=== PATIENT | female | born 1970 | race Caucasian/White ===

== ENCOUNTER 2024-06-28 09:21 | Emergency (ER) | payer BC, SELFPAY ==
--- NOTE | 2024-06-28 09:24 | ED_ITS ---
HPI - Nausea/Vomiting/Diarrhea General Chief complaint: Nausea/Vomiting/Diarrhea Stated complaint: Diarrhea/Vomiting/Fever Source: patient and RN notes reviewed Mode of arrival: ambulatory Limitations: no limitations History of Present Illness HPI Narrative: Patient is a 53-year-old female who presents to the [facility] with complaints of abdominal pain, nausea, vomiting, and diarrhea. Patient states that she developed diarrhea on Friday. She reports multiple episodes of non- bloody loose stools. she states that she started having vomiting yesterday. She has had ongoing abdominal pain. She is complaining of right upper quadrant abdominal pain. She describes the pain as a sharp cramping. States that the pain is moderately severe. The pain has exacerbated over the last few days, and she states that the pain would ease at times over the weekend but is not easing today. Unsure of known fever, but reports sweats and chills. Patient states that she has developed dizziness upon standing and ambulation over the last day. Feels as if she may be dehydrated. Related Data Home Medications ?Medication ?Instructions ?Recorded ?Confirmed ?Last Taken ?Type melatonin 5 mg chewable tablet 5 mg PO DAILY 10/30/23 Unknown History drnlamwd-hjarrzo-saql-lutein tablet tablet PO 10/30/23 Unknown History Allergies Allergy/AdvReac Type Severity Reaction Status Date / Time meperidine (From Demerol) Allergy Fainting Verified 06/28/24 09:34 Review of Systems Review of Systems: CONSTITUTIONAL: Repots chills and sweats. EYES: Denies visual changes, redness, or discharge. ENT: Denies otalgia and sore throat CARDIOVASCULAR: Denies chest pain, palpitations, or edema. RESPIRATORY: Denies cough or dyspnea. GASTROINTESTINAL: Reports abdominal pain, nausea, vomiting, and diarrhea. GENITOURINARY: Denies dysuria or hematuria. SKIN: Denies rash or itching. MUSCULOSKELETAL: Denies back pain, joint pain, or myalgia. NEUROLOGIC: Denies headache, numbness, or weakness. Pertinent positives per HPI. [facility] Family History Family History Mother Cancer Father Hypertension Social History Social History Smoking status: Never smoker Alcohol intake: current Substance use: never Substance use type: does not use Comments At the time of my signature, I reviewed and agree with the nursing past medical, surgical, social, and family history. There is no relevant family history pertinent to the patient complaint. Exam Narrative: GENERAL: This is a well-nourished, well-developed patient, in no apparent distress. Ill-appearing. HEAD: normocephalic, atraumatic. EYES: Sclera clear/white. Vision is grossly intact. EARS: External ears normal. Hearing grossly intact. NOSE: External nose normal with no obvious nasal discharge, nares without redness, no rhinorrhea. THROAT: Mucous membranes moist, oropharyngeal erythema. NECK: Neck supple, non-tender without lymphadenopathy, masses or thyromegaly. CARDIOVASCULAR: Regular rate and rhythm without murmurs, gallops, or rubs. RESPIRATORY: Clear to auscultation. Breath sounds equal bilaterally. No wheezes, rales, or rhonchi. GASTROINTESTINAL: RUQ abdominal tenderness with guarding. SKIN: warm, intact with no suspicious lesions or rash, good texture and turgor. NEURO: awake, alert, and oriented to person, place and time. There were no obvious focal neurologic abnormalities. EXTREMITIES: No clubbing, cyanosis, or edema. No joint tenderness, effusion, or edema noted. BACK: Nontender without deformity or crepitance. No flank tenderness. Course Course Level of Care: Express Care Visit Vital Signs Vital signs: Vital Signs Temperature 97.9 F 06/28/24 09:32 Pulse Rate 73 06/28/24 09:32 Respiratory Rate 16 06/28/24 09:32 Blood Pressure 146/93 H 06/28/24 09:32 Pulse Oximetry 100 06/28/24 09:32 Temperature 97.9 F 06/28/24 09:32 Pulse Rate 73 06/28/24 09:32 Respiratory Rate 16 06/28/24 09:32 Blood Pressure 146/93 H 06/28/24 09:32 Pulse Oximetry 100 06/28/24 09:32 Reviewed Transfer Transfered to: [facility] Transportation: Other (private vehicle) Transfer rationale: Right upper quadrant abdominal pain, appropriate testing and treatment for accurate diagnosis Accepting physician: Dr. Rowley MDM - Nausea/Vomiting/Diarrhea MDM Narrative Medical decision making narrative: Patient presents with right upper quadrant abdominal pain, nausea, vomiting, diarrhea. She will be transferred to [facility] for appropriate testing and treatment. Patient accepted to [facility] ED by Dr. Rowley. Patient will be transferred via private vehicle. Differential Diagnosis Differential diagnosis: Likely food poisoning, gastroenteritis, dehydration and other ( cholecystitis, pancreatitis) Critical Care Time Critical Care Time Critical Care Time: No Discharge Plan Discharge Clinical Impression: Right upper quadrant abdominal pain Patient Disposition: Acute Care Hospital Condition: Stable Additional Instructions: Go directly to [facility] ED for further evaluation, testing, and treatment. Patient Language: German Prescriptions: No Action pxypbhlm-rzxspcb-htac-lutein Tablet PO melatonin 5 mg tablet,chewable 5 mg PO DAILY lisinopril 5 mg tablet 5 mg PO DAILY Qty: 90 1RF scopolamine base 1 mg over 3 days patch 3 day 1 patch transdermal Q72H PRN (Reason: seasickness) Qty: 4 0RF Rx Instructions: Apply 1 patch (1 mg/3 days) behind ear at least 4 hours prior to required antiemetic effect needed amlodipine 2.5 mg tablet 2.5 mg PO DAILY Qty: 90 0RF Follow-up/Referrals: PHYSICIAN,COVERING MACHINE TENDER [Primary Care Provider] - Time of Disposition: 09:49
[2024-06-28 09:32] VITALS: BP 146/93; PULSE 73; RESP 16; TEMP 36.6; O2SAT 100
[2024-06-28 09:44] LABS: EDCOVIDSCREEN Negative (Negative); EDINFLUASCREEN Negative (Negative); EDINFLUBSCREEN Negative (Negative); EDSTREPNEGPOS1 Negative (Negative)
== END 2024-06-28 09:47 | disposition short-term general hospital (02) ==
PROVIDERS: Emergency Provider Nurse Practitioner
DX: R10.11 Right upper quadrant pain (principal); Z20.822 Contact with and (suspected) exposure to COVID-19
CPT/HCPCS: 87426; 87804; 87880; 99212; G0463

== ENCOUNTER 2024-06-28 10:11 | Emergency (ER) | payer BC, SELFPAY ==
[2024-06-28 10:16] VITALS: BP 149/93; PULSE 70; RESP 16; TEMP 36.9; O2SAT 96
--- OUTSIDE RECORDS SUMMARY | 2024-06-28 11:22 | XMS_ITS | Clinical Summary ---
Author Organization [facility] Address [address] [place] [address] Care Team Providers Care Shipping Manager Name Role Phone Papa Manuel MD Unavailable [phone] Jaswinder Rodriguez MD Primary Care Provider [phone] Source Comments [facility],non-owned Affiliates and Associated Physician Practices is amultiple site organization consisting of ambulatory clinics and hospital sitesin [place], [place], [place] and [place]. This disclosure is being madepursuant to the Care Everywhere program and may not contain all information available regarding this patient. Last updated 17.[facility] Allergies Active Allergy Reactions Criticality Noted Date Comments Demerol 09/10/2010 Blood pressure drops and faints, Blood pressure drops and faints Meperidine Elevated Blood Pressure Medium 05/16/2017 Medications * Be aware that medications may not be up to date on this document. Alwaysverify current medications with the patient. Medication Sig Dispensed Refills Start Date End Date Status albuterol HFA (Proventil HFA) 108 (90 Base) MCG/ACT inhaler Inhale 2 (two) puffs by mouth every 4 hours as needed 8 g 1 11/07/2021 Active Estradiol-Progest erone (Bijuva) 1-100 MG CAPS Active Multiple Vitamins-Minerals (ONE-A-DAY WOMENS 50 PLUS PO) Active melatonin 1 MG tablet Take 6 (six) tablets by mouth at bedtime Active lisinopril (Prinivil; Zestril) 5 MG tablet Take 1 (one) tablet by mouth once daily Due for appt 90 Each 3 06/23/2023 Active benzonatate (Tessalon Perles) 100 MG capsule Take 1 (one) capsule by mouth 3 times daily as needed for Cough 30 capsule 3 06/23/2023 Active tirzepatide (Mounjaro) 10 MG/0.5ML injection Inject 10 (ten) mg subcutaneously every 7 days Active Active Problems Problem Noted Date Diagnosed Date Essential hypertension 06/07/2019 Obesity (BMI 30-39.9) 12/26/2017 Venous insufficiency (chronic) (peripheral) 09/29 Varicose veins of left lower extremity with other complications 10/21/2016 Localized, primary osteoarthritis of ankle or fo ot 01/01/2010 Resolved Problems Problem Noted Date Diagnosed Date Resolved Date Sprain of medial collateral ligament of right knee 05/16/2017 01/02/2018 Sprain of anterior talofibul ar ligament of right ankle 05/16/2017 01/02/2018 Immunizations Name Administration Dates Next Due INFLUENZA VACCINE, TRIV. (AF LURIA, FLUZONE TRIVALENT; 6MO+) (IIV3) 01/01/2010 INFLUENZA VACCINE 01/17/2014,02/01/2013 INFLUENZA VACCINE, QUADR. (F LUZONE; FLULAVAL; FLUARIX; AFLURIA QUADRIVALENT; 6MO+), 0.5 ML (IIV4) 02/06/2022,12/26/2017 Influenza Intradermal 01/17/2014,02/01/2013 TDAP (7yrs+) 06/23/2023,01/01/2010,02/28/2009 Zoster Hzv Vacc Recombinant Inj Im 06/23/2023 iNFLUENZA VACCINE, RECOM-MAI, QUADR. (FLUBLOCK QUADRIVALENT; 18Y+) (RIV4) 01/11/2021,02/08/2020,04/29/2019 Family History Medical History Relation Name Comments CAD (Coronary Artery Disease) Father from [place] age 44; Status: High Cholesterol Father Cancer Mother breast; Status: Alive Hypertension Mother Relation Name Status Comments Father Mother Social History Tobacco Use Types Packs/Day Years Used Date Smoking Tobacco: Former Cigarettes Q uit: 12/02/2004 Smokeless Tobacco: Former Tobacco Cessation:Counseling Given: Not Answered Alcohol Use Standard Drinks/Week Comments Yes 0.8 (1 standard drink = 0.6 oz p ure alcohol) PHQ-2 Answer Date Recorded PHQ2 TOTAL SCORE 0 08/17/2020 Sex and Gender Information Value Date Recorded Sex Assigned at Not on file Gender Identity Female 04/17/2023 8:14 PM DEEP TISSUE MASSAGE THERAPIST Sexual Orientation Not on file Last Filed Vital Signs Vital Sign Reading Time Taken Comments Blood Pressure 136/84 06/23/2023 8:56 AM CDT Pulse 76 06/23/2023 8:56 AM CDT Temperature 35.9 C (96.7 F) 04/26/2022 11:48 AM DEEP TISSUE MASSAGE THERAPIST Respiratory Rate 12 04/26/2022 12:15 PM DEEP TISSUE MASSAGE THERAPIST Oxygen Saturation 99% 04/26/2022 12:15 PM DEEP TISSUE MASSAGE THERAPIST Inhaled Oxygen Concentration - - Weight 86.2 kg (190 lb) 06/23/2023 8:56 AM CDT Height 162.6 cm (5' 4 ) 04/26/2022 9:13 AM DEEP TISSUE MASSAGE THERAPIST Body Mass Index 32.61 04/26/2022 9:13 AM DEEP TISSUE MASSAGE THERAPIST Plan of Treatment Health Maintenance Due Date Last Done Comments COLOGUARD (AGES 45-75) - COLON CA SCREENING 1970 CT COLONOGRAPHY - COLON CA SCREENING 1970 FIT - COLON CA SCREENING 1970 FLEX SIG - COLON CA SCREENING 1970 HIV SCREENING 1985 HEPATITIS C SCREENING 12/07/1988 HEPATITIS B VACCINE (1 of 3 - 19+ 3-dose series) 1989 PNEUMOCOCCAL VACCINE 50+ (1 of 1 - PCV) 2020 ZOSTER VACCINE (2 of 2) 08/18/2023 06/23/2023 COVID-19 VACCINE (3 - 2023- season) 2023 02/06/2022, 03/28/2021 INFLUENZA VACCINE (#1) 2023 , 01/11/2021, 02/08/2020, Additional history exists DEPRESSION SCREENING 03/31/2024 06/23/2023 MAMMOGRAM 04/11/2024 04/11/2022, 04/20/2019 PAP with HPV 04/16/2027 04/16/2022 (Done Outside Per Report) LIPID TESTING 05/28/2028 05/29/2023, 11/0 06/2021, 09/20/2016, Additional history exists COLON MONITORING 04/26/2032 04/26/2022, 04/26/2022 COLONOSCOPY - COLON CA SCREENING 04/26/2032 04/26/2022, 04/26/2022 Colorectal Cancer Screening 04/26/2032 DTAP/TDAP/TD VACCINES (4 - Td or Tdap) 06/22/2033 06/23/2023, 01/01/2010, 02/28/2009 HIB VACCINE Aged Out No longer eligi ble based on patient's age to complete this topic HPV VACCINE Aged Out No longer eligi ble based on patient's age to complete this topic MENINGOCOCCAL (Group B) VACCINE SHARED DECISION-MAKING Aged Out No longer eligible based on patient's age to complete this topic MENINGOCOCCAL GROUPS A/C/Y/W VACCINE Aged Out No longer eligible based on patient's age to complete this topic Procedures Procedure Name Priority Date/Time Associated Diagnosis Comments LIPID PROFILE Routine 05/29/2023 9:40 AM DEEP TISSUE MASSAGE THERAPIST Lipid screening ENDOSCOPY, COLON, SCREENING Routine 04/26/2022 11:11 AM DEEP TISSUE MASSAGE THERAPIST MAMMOGRAM Routine 04/20/2019 from Last 3 Months or Most Recently Relevant to Health Maintenance Results * (ABNORMAL) LIPID PROFILE (05/29/2023 9:40 AM DEEP TISSUE MASSAGE THERAPIST) Cholesterol 174 100 - 199 mg/dL [facility] INSURANCE BILL Triglycerides 72 0 - 149 mg/dL [facility] INSURANCE BILL HDL Cholesterol 57 >39 mg/dL [facility] INSURANCE BILL VLDL Calculated 14 5 - 40 mg/dL [facility] INSURANCE BILL LDL Calculated 103(H) 0 - 99 mg/dL [facility] INSURANCE BILL Comment NOT AVAILABLE [facility] INSURANCE BILL Comment: FASTING Result cannot be obtained for this observation. Blood BLOOD SPECIMEN / Unknown 05/29/2023 9:40 AM DEEP TISSUE MASSAGE THERAPIST 05/29/2023 Narrative [facility] INSURANCE BILL - 05/30/2023 10:36 AM DEEP TISSUE MASSAGE THERAPIST A courtesy copy of this report has been sent to [facility], Resulting Agency Comment Lab Testing performed at: [facility] [address] [id number] Jaswinder Rodriguez MD LAB - CHE[facility] D[facility] [address] [place] [address] * ENDOSCOPY, COLON, SCREENING (04/26/2022 11:11 AM DEEP TISSUE MASSAGE THERAPIST) Report Endoscopy POC Endoscopy Department Report _ Patient Name: Charisma Werner Procedure Date: 04/26/2022 11:11 AM Date of : 1970 Classification: Outpatient Gender: Female Ethnicity: Not or Race: White _ Providers: Darcy Ashton MD Referring MD: Jaswinder Rodriguez (Referring MD) Procedure: Colonoscopy Indications: Screening for colorectal malignant neoplasm Medications: Monitored Anesthesia Care Patient Profile: This is a 51 year old female. Description of Procedure: After I obtained informed consent, the scope was passed under direct vision. Throughout the procedure, the patient's blood pressure, pulse, and oxygen saturations were monitored continuously. The Colonoscope was introduced through the anus and advanced to the terminal ileum. The colonoscopy was performed without difficulty. The patient tolerated the procedure well. Scope insertion time was 4 minutes. Scope withdrawal time was 10 minutes. The quality of the bowel preparation was evaluated using the BBPS ([place] Bowel Preparation Scale) with scores of: Right Colon = 3 (entire mucosa seen well with no residual staining, small fragments of stool or opaque liquid), Transverse Colon = 3 (entire mucosa seen well with no residual staining, small fragments of stool or opaque liquid) and Left Colon = 3 (entire mucosa seen well with no residual staining, small fragments of stool or opaque liquid). The total BBPS score equals 9. Findings: The perianal and digital rectal examinations were normal. A hypertrophied papilla was seen (clinically insignificant) The colon (entire examined portion) appeared normal. Estimated Blood Loss: Estimated blood loss: none. Complications: No immediate complications. Impression: - The entire examined colon is normal. - No specimens collected. Recommendation: - Patient has a contact number available for emergencies. The signs and symptoms of potential delayed complications were discussed with the patient. Return to normal activities tomorrow. Written discharge instructions were provided to the patient. - High fiber diet. - Repeat colonoscopy in 10 years for screening purposes. Attending Participation: I personally performed the entire procedure. Procedure Code(s): --- Professional --- G0121, Colorectal cancer screening; colonoscopy on individual not meeting criteria for high risk Diagnosis Code(s): --- Professional --- Z12.11, Encounter for screening for malignant neoplasm of colon CPT copyright 2019 [employer]. All rights reserved. The codes documented in this report are preliminary and upon computer language coder review may be revised to meet current compliance requirements. Darcy Ashton MD, 04/26/2022 11:55:00 AM This report has been signed electronically. Note Initiated On: 04/26/2022 11:11 AM Number of Addenda: [address] [address] [facility] 04/26/2022 11:1 1 AM DEEP TISSUE MASSAGE THERAPIST Darcy Ashton MD GI PROCEDURE ORDERAB LES [facility] * MAMMOGRAM (04/20/2019) Anatomical Region Laterality Modality Other Historical Provider SCANNING ONLY from Last 3 Months or Most Recently Relevant to Health Maintenance Care Teams Shipping Manager Relationship Specialty Start [place] [address] [place] [address] PCP - General 04/16/19 [place] [address] [place] [address] Orthopedic Surgery 05/16/17
--- OUTSIDE RECORDS SUMMARY | 2024-06-28 11:22 | XMS_ITS | Encounter Summary ---
Author Organization [facility] Address [address] [place] [address] Care Team Providers Care Glass Bead Maker Name Role Phone Unavailable Primary Care Provider Unavailabl e Encounter Details Date Type Department Care Team (Late st Contact Info) Description 06/03/2002 Outpatient Historical [facility] Anatoly Jaeger MD NO ADDRESS ON FILE Social History Tobacco Use Types Packs/Day Years Used Date Smoking Tobacco: Never Assessed Comments Unknown Sex and Gender Information Value Date Recorded Sex Assigned at Not on file Legal Sex Female 4:22 AM LIME SLAKER Gender Identity Not on file Sexual Orientation Not on file documented as of this encounter Plan of Treatment Not on file documented as of this encounter Visit Diagnoses Not on filedocumented in this encounter
--- OUTSIDE RECORDS SUMMARY | 2024-06-28 11:22 | XMS_ITS | Clinical Summary ---
Author Organization [facility] Address [address] [place] [address] Phone Care Team Providers Care Agricultural Produce Sorter Name Role Phone Unavailable Primary Care Provider Unavailabl e Allergies Active Allergy Reactions Criticality Noted Date Comments Meperidine Hypertension Medium 09/10/2010 Blood pressure drops and faints, Blood pressure drops and faints Medications lisinopriL (PRINIVIL) 5 mg tablet Take 1 Tablet by mouth daily. 06/25/2021 Active Active Problems No known active problems Encounters Date Type Department Care Team Description 06/16/2024 External Device Data [facility] ABSTRACTION Provider, Abstract 06/09/2024 External Device Data [facility] ABSTRACTION Provider, Abstract 06/08/2024 External Device Data [facility] ABSTRACTION Provider, Abstract 06/05/2024 External Device Data [facility] ABSTRACTION Provider, Abstract 06/04/2024 External Device Data [facility] ABSTRACTION Provider, Abstract 06/02/2024 External Device Data [facility] ABSTRACTION Provider, Abstract 05/19/2024 External Device Data [facility] ABSTRACTION Provider, Abstract 05/11/2024 External Device Data [facility] ABSTRACTION Provider, Abstract 04/21/2024 External Device Data [facility] ABSTRACTION Provider, Abstract from Last 3 Months Social History Tobacco Use Types Packs/Day Years Used Date Smoking Tobacco: Never Smokeless Tobacco: Never Tobacco Cessation:Counseling Given: Not Answered Alcohol Use Standard Drinks/Week Comments Yes 0 (1 standard drink = 0.6 oz pur e alcohol) Socially Comments No Sex and Gender Information Value Date Recorded Sex Assigned at Not on file Legal Sex Female 4:22 AM VENUE COORDINATOR Gender Identity Not on file Sexual Orientation Not on file Last Filed Vital Signs Vital Sign Reading Time Taken Comments Blood Pressure 116/80 04/16/2022 11:01 AM VENUE COORDINATOR Pulse - - Temperature - - Respiratory Rate - - Oxygen Saturation - - Inhaled Oxygen Concentration - - Weight 89.8 kg (198 lb) 04/16/2022 11:01 AM VENUE COORDINATOR Height - - Body Mass Index - - Plan of Treatment Health Maintenance Due Date Last Done Comments Pre-Diabetes and Diabetes Screening 1970 HEPATITIS B VACCINES (1 of 3 - 19+ 3-dose series) 1989 HPV/Cotest (21-29) 12/13/1991 HPV/Cotest (30-65) 2000 COLORECTAL SCREENING 12/13/2015 Colorectal Cancer Screening 12/13/2015 FIT-DNA Q 3 years 12/13/2015 FIT/FOBT Q 1 year 12/13/2015 Flex Sig/CT Colonography Q 5 years 12/13/2015 ZOSTER VACCINE (2 of 2) 08/18/2023 06/23/2023 INFLUENZA VACCINE (#1) 2023 2, 01/11/2021, 02/08/2020, Additional history exists BREAST CANCER SCREENING 11/06/2024 11/07/19 24, 04/11/2022, 04/20/2019, Additional history exists CERVICAL CANCER SCREENING 04/16/2025 PAP SMEAR 04/16/2025 04/16/2022 PAP SMEAR 04/16/2025 04/16/2022 DTAP/TDAP/TD VACCINES (4 - Td or Tdap) 06/22/2033 06/23/2023, 01/01/2010, 02/28/2009 PNEUMOCOCCAL VACCINE 0-49 YEARS Aged Out No longer eligible based on patient's age to complete this topic Procedures Procedure Name Priority Date/Time Associated Diagnosis Comments MAMMO 3D PABLITO SCREEN BILAT W OR WO CAD Routine 11/07/2023 8:05 AM CDT Visit for screening mammogram CERV/VAG CYTO AGE BASED SCREEN PAP Routine 04/16/2022 11:13 AM VENUE COORDINATOR Encounter for gynecological examination without abnormal finding Screening for cervical cancer Special screening examination for human papillomavirus (HPV) from Last 3 Months or Most Recently Relevant to Health Maintenance Results * MAMMO 3D PABLITO SCREEN BILAT W OR WO CAD (11/07/2023 8:05 AM CDT) Anatomical Region Laterality Modality Breast Bilateral Mammography 11/07/2023 8:05 AM CDT Impressions 11/07/2023 8:37 AM CDT IMPRESSION: Small nodule left breast for which ultrasound exam will be scheduled for further assessment. BI-RADS CATEGORY 0-Needs additional imaging. Narrative 11/07/2023 8:37 AM CDT Computer Assisted Detection (CAD) used during interpretation. Standard views of both breasts are obtained. 3D tomosynthesis was also utilized. Compared to prior studies, most recent being 04/11/22. The right breast is unchanged. A new 5 mm nodule is noted near the 6:00 position of the left breast proximal depth. Breast Density: Scattered areas of fibroglandular density. Sameer Levin MD MAMMO ORDERABLES Final Result * CERV/VAG CYTO AGE BASED SCREEN PAP (04/16/2022 11:13 AM VENUE COORDINATOR) COMMENT (PAP): [facility] [place] Comment: This order for age-based cervical cancer and STI screening follows ACOG guidelines(PB 168, 140, ERW982). See individual assays for performing site location. CLINICAL INFORMATION [facility] [place] Comment:None given LAST MENSTRUAL PERIOD [facility] [place] Comment:NONE GIVEN PREV PAP: [facility] [place] Comment:NONE GIVEN PREV BX: [facility] [place] Comment:NONE GIVEN SOURCE [facility] [place] Comment:Endocervix ADEQUACY: [facility] [place] Comment: Satisfactory for evaluation. Endocervical/transformation zone component present. Age and/or menstrual status not provided PAP INTERP [facility] [place] Comment:Negative for intraep ithelial lesion or malignancy. COMMENT (PAP TEST) [facility] [place] Comment: This Pap test has been evaluated with computer assisted technology. STATION JAILER: [facility] [place] Comment: [place]TT, CT(ASCP) CT Screening location: [address] [place] [address] EXPLANATORY NOTE [facility] [place] Comment: EXPLANATORY NOTE: The Pap is a screening test for cervical cancer. It is not a diagnostic test and is subject to false negative and false positive results. It is most reliable when a satisfactory sample, regularly obtained, is submitted with relevant clinical findings and history, and when the Pap result is evaluated along with historic and current clinical information. HPV E6/E7 Not Detected Not Detected [facility] [place] Comment: Methodology: International Marketing Intern-Mediated Amplification This assay detects E6/E7 viral messenger RNA (mRNA) from 14 high-risk HPV types (16,18,31,33,35,39,45,51,52,56,58,59,66,68). Cervical sources are required for HPV testing. If a vaginal source from a patient who has had a total hysterectomy with removal of cervix was submitted, please contact the testing laboratory for alternative testing options. For additional information, please refer to http://education.Thinkr/faq/CUK598z6 (This link if provided for information/ educational purposes only.) Test Performed at: [facility] [address] [phone] Bautista Ivory D.O., MPH SL Genital SWAB OF ENDOCERVIX / Unknown 04/16/2022 11:13 AM VENUE COORDINATOR 04/16/2022 10:11 PM VENUE COORDINATOR Sameer Levin MD PATHOLOGY/CYTOLOGY ORD ERABLES Final Result [facility] [phone] [facility] [address] [phone] from Last 3 Months or Most Recently Relevant to Health Maintenance Insurance [facility] OPEN ACCESS HMO [facility] BLUE ACCESS CHOICE [facility]
--- OUTSIDE RECORDS SUMMARY | 2024-06-28 11:22 | XMS_ITS | Encounter Summary ---
Author Organization [email or web address] [facility] Address [address] [place] [address] Care Team Providers Care Hospital Product Specialist Name Role Phone Unavailable Primary Care Provider Unavailabl e Encounter Details Date Type Department Care Team (Late st Contact Info) Description 05/03/2002 Outpatient Historical [facility] Anatoly Jaeger MD NO ADDRESS ON FILE Social History Tobacco Use Types Packs/Day Years Used Date Smoking Tobacco: Never Assessed Comments Unknown Sex and Gender Information Value Date Recorded Sex Assigned at Not on file Legal Sex Female 4:22 AM WELT TREATER Gender Identity Not on file Sexual Orientation Not on file documented as of this encounter Plan of Treatment Not on file documented as of this encounter Visit Diagnoses Not on filedocumented in this encounter
--- OUTSIDE RECORDS SUMMARY | 2024-06-28 11:22 | XMS_ITS ---
Author Organization [facility] Address [address] [place] [address] Care Team Providers Care Crabber Name Role Phone Kwaku Corrigan [phone] REASON FOR VISIT [facility] Weight Loss, on tirzepatide, doing well, no side effects, appetite suppression great on current dose, Desired weight loss: 70 lbs, +0.6 lbs since last visit, -18.6 lbs total, No history MTC or MEN2 or pancreatitis, Concerned about future DM and OA Vital Signs Height 64 in 09/24/2023 Weight 200.6 lbs 09/24/2023 BMI 34.43 kg/m2 09/24/2023 Encounters Encounter Location Date Provider Diagnosis [facility] ([address]) [address] [address] 09/24/2023 Kwaku Corrigan Morbid (severe) obesity due to excess calories E66.01 ; Chronic fatigue, unspecified R53.82 ; Other fatigue R53.83 and Other malaise R53.81 Assessments Encounter Date Diagnosis (ICD Code) Assessment Notes Treatment Notes Treatment Clinical Notes Section Notes 09/24/2023 Morbid (severe) obesity due to excess calories (ICD-10 - E66.01) 09/24/2023 Chronic fatigue, unspecified (ICD-10 - R53.82) 09/24/2023 Other fatigue (ICD-10 - R53.83) 09/24/2023 Other malaise (ICD-10 - R53.81) Plan Of Treatment Next Appt Details Follow Up: 1 Week, Reason: G LP-1 Agonist Administration Procedure Notes * Category Sub-Category Detail Notes [facility]: Weight Management tirzepatide Indication: weig ht loss Concentration: 10 mg/mL Volume Administered: 0.3 mL Dose Administered: 3 mg Route: SQ Location: Right abdomen Frequency: weekly Lot Number/Expiration: Medication Source: DoseMe Adverse Reaction: None Progress Notes * Neida ZARAGOZAOB:[birth year] (53 yo F)Acc No.[id number]:09/24/2023 Weight Loss Patient: Charisma CASTRO Provider: Kajal Corrigan MD :1970 A ge:52 Y S ex:Female Date:09/24/2023 [id number] Subjective: * Chief Complaints: * 1 . [facility] Weight Loss, on tirzepatide, doing well, no side effects, appetite suppression great on current dose. 2. Desired weight loss: 70 lbs, +0.6 lbs since last visit, -18.6 lbs total. 3. No history MTC or MEN2 or pancreatitis. 4. Concerned about future DM and OA. * Medical History: Objective: * Vitals: H t: 64 in, Wt: 200.6 lbs, BMI:34.43Index. Assessment: * Assessment: 1. M orbid (severe) obesity due to excess calories - E66.01 (Primary) 2 . C hronic fatigue, unspecified - R53.82 3 . O ther fatigue - R53.83 ?4. O ther malaise - R53.81 Plan: * Treatment: * Procedures: Q [facility]ell: Weight Management: tirzepatide I ndication w eight loss C oncentration 1 0 mg/mL V olume Administered 0 .3 mL D ose Administered 3 mg R oute S Q L ocation R ight abdomen F requency w eekly L ot Number/Expiration 0 M edication Source [facility] A dverse Reaction N one * Follow Up: 1 Week (Reason: GLP-1 Agonist Administration) * Billing Information: * Visit Code: * Procedure Codes: * Electronic signature of Daniel Corrigan MD, FAAAAI on 06/28/2024 at 11:22 AM CDT Sign off status: Pending * Provider: Kajal Corrigan MD Date: 0 09/24/2023 Generated for Camilo garsia/Keisha/Abimael on: 0 06/28/2024 11:22 AM CDT
--- OUTSIDE RECORDS SUMMARY | 2024-06-28 11:22 | XMS_ITS | Encounter Summary ---
Author Organization [facility] Address [address] [place] [address] Care Team Providers Care Infantry Indirect Fire Crewmember Name Role Phone Unavailable Primary Care Provider Unavailabl e Encounter Details Date Type Department Care Team (Latest Contact Info) Description 01/27/2002 Outpatient Historical [facility] [place] PAIN IN LIMB (Primary Dx) Social History Tobacco Use Types Packs/Day Years Used Date Smoking Tobacco: Never Assessed Comments Unknown Sex and Gender Information Value Date Recorded Sex Assigned at Not on file Legal Sex Female 4:22 [address] STREETS AND BUILDINGS DECORATOR Gender Identity Not on file Sexual Orientation Not on file documented as of this encounter Plan of Treatment Not on file documented as of this encounter Visit Diagnoses Diagnosis Pain in limb- Primary documented in this encounter
--- OUTSIDE RECORDS SUMMARY | 2024-06-28 11:22 | XMS_ITS | Encounter Summary ---
Author Organization [facility] Address [address] [place] [address] Care Team Providers Care Pickle Cutter Name Role Phone Unavailable Primary Care Provider Unavailabl e Encounter Details Date Type Department Care Team (Latest Contact Info) Description 08/07/1998 Outpatient Historical [facility] [place] (Primary Dx) Social History Tobacco Use Types Packs/Day Years Used Date Smoking Tobacco: Never Assessed Comments Unknown Sex and Gender Information Value Date Recorded Sex Assigned at Not on file Legal Sex Female 4:22 AM SIZING SPONGER Gender Identity Not on file Sexual Orientation Not on file documented as of this encounter Plan of Treatment Not on file documented as of this encounter Visit Diagnoses Diagnosis Fl[place]- Primary documented in this encounter
--- OUTSIDE RECORDS SUMMARY | 2024-06-28 11:22 | XMS_ITS | Encounter Summary ---
Author Organization [facility] Address [address] [place] [address] Care Team Providers Care Kier Drier Name Role Phone Unavailable Primary Care Provider Unavailabl e Encounter Details Date Type Department Care Team (Late st Contact Info) Description 02/22/2002 Outpatient Historical [facility] [place] [address] [place] [address] [place] [address] [place] [address] Social History Tobacco Use Types Packs/Day Years Used Date Smoking Tobacco: Never Assessed Comments Unknown Sex and Gender Information Value Date Recorded Sex Assigned at Not on file Legal Sex Female 4:22 AM INSURANCE AGENTS SUPERVISOR Gender Identity Not on file Sexual Orientation Not on file documented as of this encounter Plan of Treatment Not on file documented as of this encounter Visit Diagnoses Not on filedocumented in this encounter
--- OUTSIDE RECORDS SUMMARY | 2024-06-28 11:22 | XMS_ITS | Encounter Summary ---
Author Organization [facility] Address [address] [place] [address] Care Team Providers Care Recycler Forklift Driver Truck Driver Name Role Phone Unavailable Primary Care Provider Unavailabl e Encounter Details Date Type Department Care Team (Late st Contact Info) Description 02/02/2002 Outpatient Historical [facility] [address] [facility] [address] [place] [address] Corey Mendoza MD [address] [place] [address] [address] [place] [address] Social History Tobacco Use Types Packs/Day Years Used Date Smoking Tobacco: Never Assessed Comments Unknown Sex and Gender Information Value Date Recorded Sex Assigned at Not on file Legal Sex Female 4:22 AM ARTIST SCIENTIFIC Gender Identity Not on file Sexual Orientation Not on file documented as of this encounter Plan of Treatment Not on file documented as of this encounter Visit Diagnoses Not on filedocumented in this encounter
--- OUTSIDE RECORDS SUMMARY | 2024-06-28 11:22 | XMS_ITS | Encounter Summary ---
Author Organization [facility] Address [address] [place] [address] Care Team Providers Care Glued Wood Tester Name Role Phone Unavailable Primary Care Provider Unavailabl e Encounter Details Date Type Department Care Team (Late st Contact Info) Description 01/27/2002 Outpatient Historical [facility] - [place] [address] [facility] [address] [place] [address] [place] [address] [place] [address] Social History Tobacco Use Types Packs/Day Years Used Date Smoking Tobacco: Never Assessed Comments Unknown Sex and Gender Information Value Date Recorded Sex Assigned at Not on file Legal Sex Female 4:22 AM STEEL CHECKER Gender Identity Not on file Sexual Orientation Not on file documented as of this encounter Plan of Treatment Not on file documented as of this encounter Visit Diagnoses Not on filedocumented in this encounter
--- OUTSIDE RECORDS SUMMARY | 2024-06-28 11:22 | XMS_ITS | Patient Health Record ---
Author Organization [facility] Address [address] [facility] [address] [place] [address] Support Name Relationship Address Phone Charisma Werner Guarantor Unknown [phone] Reason For Referral No Information Plan Of Treatment No Information
--- OUTSIDE RECORDS SUMMARY | 2024-06-28 11:22 | XMS_ITS | Encounter Summary ---
Author Organization [facility] Address [address] [place] [address] Care Team Providers Care Director Of Accounting Name Role Phone Unavailable Primary Care Provider Unavailabl e Encounter Details Date Type Department Care Team (Late st Contact Info) Description 08/21/1998 Outpatient Historical [facility] Anatoly Jeager MD NO ADDRESS ON FILE Social History Tobacco Use Types Packs/Day Years Used Date Smoking Tobacco: Never Assessed Comments Unknown Sex and Gender Information Value Date Recorded Sex Assigned at Not on file Legal Sex Female 4:22 AM DISHWASHER Gender Identity Not on file Sexual Orientation Not on file documented as of this encounter Plan of Treatment Not on file documented as of this encounter Visit Diagnoses Not on filedocumented in this encounter
--- OUTSIDE RECORDS SUMMARY | 2024-06-28 11:23 | XMS_ITS ---
Author Organization [facility] Address [address] [place] [address] Care Team Providers Care President Trust Company Name Role Phone Kwaku Corrigan [phone] REASON FOR VISIT [facility] Weight Loss, on tirzepatide, doing well, no side effects, appetite suppression great on current dose, Desired weight loss: 70 lbs, -2 lbs since last visit, -19.2 lbs total, No historyMTC or MEN2 or pancreatitis, Concerned about future DM and OA Vital Signs Height 64 in 09/17/2023 Weight 199.2 lbs 09/17/2023 BMI 34.19 kg/m2 09/17/2023 Encounters Encounter Location Date Provider Diagnosis [facility] [place] ([address]) [address] [address] 09/17/2023 Kwaku Corrigan Morbid (severe) obesity due to excess calories E66.01 ; Chronic fatigue, unspecified R53.82 ; Other fatigue R53.83 and Other malaise R53.81 Assessments Encounter Date Diagnosis (ICD Code) Assessment Notes Treatment Notes Treatment Clinical Notes Section Notes 09/17/2023 Morbid (severe) obesity due to excess calories (ICD-10 - E66.01) 09/17/2023 Chronic fatigue, unspecified (ICD-10 - R53.82) 09/17/2023 Other fatigue (ICD-10 - R53.83) 09/17/2023 Other malaise (ICD-10 - R53.81) Plan Of Treatment Next Appt Details Follow Up: 1 Week, Reason: G LP-1 Agonist Administration Procedure Notes * Category Sub-Category Detail Notes [facility]: Weight Management tirzepatide Indication: weig ht loss Concentration: 10 mg/mL Volume Administered: 0.3 mL Dose Administered: 3 mg Route: SQ Location: Right abdomen Frequency: weekly Lot Number/Expiration: Medication Source: [place] Adverse Reaction: None Progress Notes * Neida ZARAGOZAOB:[birth year] (53 yo F)Acc No.[id number]:09/17/2023 Weight Loss Patient: Charisma CASTRO Provider: Kajal Corrigan MD :1970 A ge:52 Y S ex:Female Date:09/17/2023 [id number] Subjective: * Chief Complaints: * 1 . [facility] Weight Loss, on tirzepatide, doing well, no side effects, appetite suppression great on current dose. 2. Desired weight loss: 70 lbs, -2 lbs since last visit, -19.2 lbs total. 3. No history MTC or MEN2 or pancreatitis. 4. Concerned about future DM and OA. * Medical History: Objective: * Vitals: H t: 64 in, Wt: 199.2 lbs, BMI:34.19Index. Assessment: * Assessment: 1. M orbid (severe) [...] ot Number/Expiration 0 M [facility]ication [facility] A dverse Reaction N one * Follow Up: 1 Week (Reason: GLP-1 Agonist Administration) * Billing Information: * Visit Code: * Procedure Codes: * Electronic signature of Daniel Corrigan MD, FAAAAI on 06/28/2024 at 11:23 AM CDT Sign off status: Pending * Provider: Kajal Corrigan MD Date: 0 09/17/2023 Generated for Camilo garsia/Keisha/Abimael on: 0 06/28/2024 11:23 AM CDT
--- OUTSIDE RECORDS SUMMARY | 2024-06-28 11:23 | XMS_ITS | Encounter Summary ---
Author Organization [employer] [facility] Address [address] [place] [address] Care Team Providers Care Mica Paster Name Role Phone Unavailable Primary Care Provider Unavailabl e Encounter Details Date Type Department Care Team (Late st Contact Info) Description 07/31/1998 Outpatient Historical [facility] Anatoly Jaeger MD NO ADDRESS ON FILE Social History Tobacco Use Types Packs/Day Years Used Date Smoking Tobacco: Never Assessed Comments Unknown Sex and Gender Information Value Date Recorded Sex Assigned at Not on file Legal Sex Female 4:22 AM ASSISTANT PARALEGAL Gender Identity Not on file Sexual Orientation Not on file documented as of this encounter Plan of Treatment Not on file documented as of this encounter Visit Diagnoses Not on filedocumented in this encounter
--- OUTSIDE RECORDS SUMMARY | 2024-06-28 11:23 | XMS_ITS | Encounter Summary ---
Author Organization [employer] [facility] Address [address] [place] [address] Care Team Providers Care Mining Analyst Name Role Phone Unavailable Primary Care Provider Unavailabl e Encounter Details Date Type Department Care Team (Late st Contact Info) Description 01/24/2003 Outpatient Historical [facility] Anatoly Jaeger MD NO ADDRESS ON FILE Social History Tobacco Use Types Packs/Day Years Used Date Smoking Tobacco: Never Assessed Comments Unknown Sex and Gender Information Value Date Recorded Sex Assigned at Not on file Legal Sex Female 4:22 AM SURVEILLANCE SENSOR OFFICER Gender Identity Not on file Sexual Orientation Not on file documented as of this encounter Plan of Treatment Not on file documented as of this encounter Visit Diagnoses Not on filedocumented in this encounter
--- OUTSIDE RECORDS SUMMARY | 2024-06-28 11:23 | XMS_ITS | Encounter Summary ---
Author Organization [employer] [facility] Address [address] [place] [address] Care Team Providers Care Journeyman Meat Cutter Name Role Phone Unavailable Primary Care Provider Unavailabl e Encounter Details Date Type Department Care Team (Late st Contact Info) Description 08/03/1998 Outpatient Historical [facility] Anatoly Jaeger MD NO ADDRESS ON FILE Social History Tobacco Use Types Packs/Day Years Used Date Smoking Tobacco: Never Assessed Comments Unknown Sex and Gender Information Value Date Recorded Sex Assigned at Not on file Legal Sex Female 4:22 AM GEOTHERMAL HEAT PUMP MACHINIST Gender Identity Not on file Sexual Orientation Not on file documented as of this encounter Plan of Treatment Not on file documented as of this encounter Visit Diagnoses Not on filedocumented in this encounter
--- OUTSIDE RECORDS SUMMARY | 2024-06-28 11:23 | XMS_ITS | Encounter Summary ---
Author Organization [facility] Address [address] [place] [address] Care Team Providers Care Merchandiser Seasonal Name Role Phone Unavailable Primary Care Provider Unavailabl e Encounter Details Date Type Department Care Team (Late st Contact Info) Description 04/27/1998 Outpatient Historical [facility] Anatoly Jaeger MD NO ADDRESS ON FILE Social History Tobacco Use Types Packs/Day Years Used Date Smoking Tobacco: Never Assessed Comments Unknown Sex and Gender Information Value Date Recorded Sex Assigned at Not on file Legal Sex Female 4:22 AM SHOW HOST/HOSTESS Gender Identity Not on file Sexual Orientation Not on file documented as of this encounter Plan of Treatment Not on file documented as of this encounter Visit Diagnoses Not on filedocumented in this encounter
--- OUTSIDE RECORDS SUMMARY | 2024-06-28 11:23 | XMS_ITS | Encounter Summary ---
Author Organization [facility] Address [address] [place] [address] Care Team Providers Care Protective Signal Repairer Name Role Phone Unavailable Primary Care Provider Unavailabl e Encounter Details Date Type Department Care Team (Late st Contact Info) Description 12/04/2006 Outpatient Historical [facility] Medicine - [place] [address] [place] [phone] Bautista Brown MD [address] [place], [place] [phone] Social History Tobacco Use Types Packs/Day Years Used Date Smoking Tobacco: Never Assessed Comments Unknown Sex and Gender Information Value Date Recorded Sex Assigned at Not on file Legal Sex Female 4:22 AM KNURLING MACHINE OPERATOR Gender Identity Not on file Sexual Orientation Not on file documented as of this encounter Plan of Treatment Not on file documented as of this encounter Visit Diagnoses Not on filedocumented in this encounter
--- OUTSIDE RECORDS SUMMARY | 2024-06-28 11:23 | XMS_ITS | Encounter Summary ---
Author Organization [facility] Address [address] Brown: Epic Prelude ADT KIM POZO [address] Care Team Providers Care Gas Tester Name Role Phone Unavailable Primary Care Provider Unavailabl e Encounter Details Date Type Department Care Team (Late st Contact Info) Description 11/22/1991 Outpatient Historical Social History Tobacco Use Types Packs/Day Years Used Date Smoking Tobacco: Never Assessed Comments Unknown Sex and Gender Information Value Date Recorded Sex Assigned at Not on file Legal Sex Female 4:22 AM LEASE ADMINISTRATION SUPERVISOR Gender Identity Not on file Sexual Orientation Not on file documented as of this encounter Plan of Treatment Not on file documented as of this encounter Visit Diagnoses Not on filedocumented in this encounter
--- OUTSIDE RECORDS SUMMARY | 2024-06-28 11:23 | XMS_ITS | Encounter Summary ---
Author Organization [facility] Address [address] [place] [address] Care Team Providers Care Scientific Aide Name Role Phone Unavailable Primary Care Provider Unavailabl e Encounter Details Date Type Department Care Team (Late st Contact Info) Description 05/10/2005 Outpatient Historical [facility] Medicine - [place] [address] [facility] [address] [place] [address] [place] [address] [place] [address] Social History Tobacco Use Types Packs/Day Years Used Date Smoking Tobacco: Never Assessed Comments Unknown Sex and Gender Information Value Date Recorded Sex Assigned at Not on file Legal Sex Female 4:22 AM SENIOR INTERNAL AUDITOR Gender Identity Not on file Sexual Orientation Not on file documented as of this encounter Plan of Treatment Not on file documented as of this encounter Visit Diagnoses Not on filedocumented in this encounter
--- OUTSIDE RECORDS SUMMARY | 2024-06-28 11:23 | XMS_ITS ---
Author Organization [facility] Address [address] [place] [address] Care Team Providers Care Buckle Frame Shaper Name Role Phone zzzzMigration, zzzzProvider Unavailable Unav ailable REASON FOR VISIT EMR-Arsenio Encounters Encounter Location Date Provider Diagnosis [facility] [address] [place] [address] 01/19/2023 zzzzProvider zzzzMigration Plan Of Treatment No Information Progress Notes * Neida ARMASOB: 1 (53 yo F)Acc No.[id number]:01/19/2023 Patient: Charisma PENNY :1970 A ge:52 Y S ex:Female Address:[place], [address] Subjective: * Chief Complaints: * E MR-Arsenio * Medical History: * Surgical History: * Hospitalization/Major Diagno stic Procedure: * Medications: Objective: * Vitals: * Physical Examination: Assessment: Plan: * Treatment: * Procedure Codes: * true * Date: Generated for Printi ng/Faxing/eTransmitting on: 0 06/28/2024 11:22 AM CDT
--- OUTSIDE RECORDS SUMMARY | 2024-06-28 11:23 | XMS_ITS | Encounter Summary ---
Author Organization [facility] Address [address] [place] [address] Care Team Providers Care Senior Technologist Name Role Phone Unavailable Primary Care Provider Unavailabl e Encounter Details Date Type Department Care Team (Late st Contact Info) Description 06/22/1998 Outpatient Historical [facility] Anatoly Jaeger MD NO ADDRESS ON FILE Social History Tobacco Use Types Packs/Day Years Used Date Smoking Tobacco: Never Assessed Comments Unknown Sex and Gender Information Value Date Recorded Sex Assigned at Not on file Legal Sex Female 4:22 AM BOILER CONTROL ROOM OPERATOR Gender Identity Not on file Sexual Orientation Not on file documented as of this encounter Plan of Treatment Not on file documented as of this encounter Visit Diagnoses Not on filedocumented in this encounter
--- OUTSIDE RECORDS SUMMARY | 2024-06-28 11:23 | XMS_ITS | Encounter Summary ---
Author Organization [facility] Address [address] [place] [address] Care Team Providers Care Mechanical Technician Name Role Phone Unavailable Primary Care Provider Unavailabl e Encounter Details Date Type Department Care Team (Late st Contact Info) Description 12/31/2006 Outpatient Historical [facility] Medicine - [place] [address] [place] [phone] Bautista Brown MD [address] [place], [place] [phone] Social History Tobacco Use Types Packs/Day Years Used Date Smoking Tobacco: Never Assessed Comments Unknown Sex and Gender Information Value Date Recorded Sex Assigned at Not on file Legal Sex Female 4:22 AM ELECTRON MICROPROBE OPERATOR Gender Identity Not on file Sexual Orientation Not on file documented as of this encounter Plan of Treatment Not on file documented as of this encounter Visit Diagnoses Not on filedocumented in this encounter
--- OUTSIDE RECORDS SUMMARY | 2024-06-28 11:23 | XMS_ITS | Encounter Summary ---
Author Organization [facility] Address [address] [place] [address] Care Team Providers Care Administrative Office Clerk Name Role Phone Unavailable Primary Care Provider Unavailabl e Encounter Details Date Type Department Care Team (Latest Contact Info) Description 01/06/2006 Outpatient Historical [facility] Screening Mammogram for High-Risk Patient (Primary Dx) Social History Tobacco Use Types Packs/Day Years Used Date Smoking Tobacco: Never Assessed Comments Unknown Sex and Gender Information Value Date Recorded Sex Assigned at Not on file Legal Sex Female 4:22 AM BUNDLE TIER Gender Identity Not on file Sexual Orientation Not on file documented as of this encounter Plan of Treatment Not on file documented as of this encounter Visit Diagnoses Diagnosis Screening mammogram for high-risk patient- Primary documented in this encounter
--- OUTSIDE RECORDS SUMMARY | 2024-06-28 11:23 | XMS_ITS | Encounter Summary ---
Author Organization [facility] Address [address] [place] [address] Care Team Providers Care Power Electronics Research Engineer Name Role Phone Unavailable Primary Care Provider Unavailabl e Encounter Details Date Type Department Care Team (Late st Contact Info) Description 09/10/2006 Outpatient Historical [facility] Medicine - [place] [address] [facility] [address] [place] [phone] Bautista Brown MD [address] [facility] [place], [place] [phone] Social History Tobacco Use Types Packs/Day Years Used Date Smoking Tobacco: Never Assessed Comments Unknown Sex and Gender Information Value Date Recorded Sex Assigned at Not on file Legal Sex Female 4:22 AM ELECTRICAL HARDWARE ENGINEER Gender Identity Not on file Sexual Orientation Not on file documented as of this encounter Plan of Treatment Not on file documented as of this encounter Visit Diagnoses Not on filedocumented in this encounter
--- OUTSIDE RECORDS SUMMARY | 2024-06-28 11:23 | XMS_ITS | Encounter Summary ---
Author Organization [facility] Address [address] [place] [address] Care Team Providers Care Diaper Folder Name Role Phone Unavailable Primary Care Provider Unavailabl e Encounter Details Date Type Department Care Team (Latest Contact Info) Description 11/17/2003 Outpatient Historical [facility] [place] PAIN IN LIMB (Primary Dx) Social History Tobacco Use Types Packs/Day Years Used Date Smoking Tobacco: Never Assessed Comments Unknown Sex and Gender Information Value Date Recorded Sex Assigned at Not on file Legal Sex Female 4:22 AM EMERY WHEEL WORKER Gender Identity Not on file Sexual Orientation Not on file documented as of this encounter Plan of Treatment Not on file documented as of this encounter Visit Diagnoses Diagnosis Pain in limb- Primary documented in this encounter
--- OUTSIDE RECORDS SUMMARY | 2024-06-28 11:23 | XMS_ITS | Encounter Summary ---
Author Organization [facility] Address [address] [place] [address] Care Team Providers Care Podiatric Assistant Name Role Phone Unavailable Primary Care Provider Unavailabl e Encounter Details Date Type Department Care Team (Late st Contact Info) Description 05/28/2002 Outpatient Historical [facility] Medicine - [place] [address] [facility] [address] [place] [address] [place] [address] [place] [address] Social History Tobacco Use Types Packs/Day Years Used Date Smoking Tobacco: Never Assessed Comments Unknown Sex and Gender Information Value Date Recorded Sex Assigned at Not on file Legal Sex Female 4:[address] MAN Gender Identity Not on file Sexual Orientation Not on file documented as of this encounter Plan of Treatment Not on file documented as of this encounter Visit Diagnoses Not on filedocumented in this encounter
--- OUTSIDE RECORDS SUMMARY | 2024-06-28 11:23 | XMS_ITS | Encounter Summary ---
Author Organization [facility] Address [address] [place] [address] Care Team Providers Care Office Lead Name Role Phone Unavailable Primary Care Provider Unavailabl e Encounter Details Date Type Department Care Team (Late st Contact Info) Description 05/26/2002 Outpatient Historical [facility] Medicine - [place] [address] [facility] [address] [place] [address] [place] [address] [place] [address] Social History Tobacco Use Types Packs/Day Years Used Date Smoking Tobacco: Never Assessed Comments Unknown Sex and Gender Information Value Date Recorded Sex Assigned at Not on file Legal Sex Female 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
--- OUTSIDE RECORDS SUMMARY | 2024-06-28 11:23 | XMS_ITS ---
Author Organization [facility] Address [address] [place] [address] Care Team Providers Care Ob Scrub Tech Name Role Phone Shekhar Kwaku Unavailable [phone] REASON FOR VISIT [facility], on tirzepatide, doing well, no side effects, appetite suppression great on current dose, Desired weight loss: 70 lbs, +0.6 lbs since last visit, -18.6 lbs total, No history MTC or MEN2 or pancreatitis, Concerned about future DM and OA Encounters Encounter Location Date Provider Diagnosis [facility] [place] ([address]) [address] [address] 10/01/2023 Kwaku Corrigan Morbid (severe) obesity due to excess calories E66.01 ; Chronic fatigue, unspecified R53.82 ; Other fatigue R53.83 and Other malaise R53.81 Assessments Encounter Date Diagnosis (ICD Code) Assessment Notes Treatment Notes Treatment Clinical Notes Section Notes 10/01/2023 Morbid (severe) obesity due to excess calories (ICD-10 - E66.01) 10/01/2023 Chronic fatigue, unspecified (ICD-10 - R53.82) 10/01/2023 Other fatigue (ICD-10 - R53.83) 10/01/2023 Other malaise (ICD-10 - R53.81) Plan Of Treatment Next Appt Details Follow Up: 1 Week, Reason: G LP-1 Agonist Administration Procedure Notes * Category Sub-Category Detail Notes [facility] tirzepatide Indication: weig ht loss Concentration: 10 mg/mL Volume Administered: 0.3 mL Dose Administered: 3 mg Route: SQ Location: Right abdomen Frequency: weekly Lot Number/Expiration: Medication Source: [facility] Adverse Reaction: None Progress Notes * MARIELOS MORRISSEY CarrieDOB:[birth year] (53 yo F)Acc No.[id number]:10/01/2023 Weight Loss Patient: Charisma CASTRO Provider: Kajal Corrigan MD :1970 A ge:52 Y S ex:Female Date:10/01/2023 Address:[address], [id number] Subjective: * Chief Complaints: * 1 . [facility], on tirzepatide, doing well, no side effects, appetite suppression great on current dose. 2. Desired weight loss: 70 lbs, +0.6 lbs since last visit, -18.6 lbs total. 3. No history MTC or MEN2 or pancreatitis. 4. Concerned about future DM and OA. * Medical History: Objective: * Vitals: Assessment: * Assessment: 1. M orbid (severe) [...] ot Number/Expiration 0 M edication Source [facility] A dverse Reaction N one * Follow Up: 1 Week (Reason: GLP-1 Agonist Administration) * Billing Information: * Visit Code: * Procedure Codes: * Electronic signature of Daniel Corrigan MD, FAAAAI on 06/28/2024 at 11:22 AM CDT Sign off status: Pending * Provider: Kajal Corrigan MD Date: 0 10/01/2023 Generated for Printi ng/Faxing/eTransmitting on: 0 06/28/2024 11:22 AM CDT
--- OUTSIDE RECORDS SUMMARY | 2024-06-28 11:23 | XMS_ITS | Encounter Summary ---
Author Organization [facility] Address 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
--- OUTSIDE RECORDS SUMMARY | 2024-06-28 11:23 | XMS_ITS | Continuity of Care Document ---
Author Organization [facility] Address [address] [place] [address] Phone Care Team Providers Care Regional Wildlife Agent Name Role Phone Bautista Ya DO Unavailable Unavailable Allergies, Adverse Reactions, Alerts Substance Reaction Status Criticality No Known Drug Allergies Other Active No I nformation Medications Medication Instructions Dosage Effective Dates (start - stop) Status Comments DAYPRO 600 MG CAPLET 1 BID - Activ e Advance Directives Directive Yes / No Effective Date File Name No Information Encounters Encounter Description Practice Location Reason(s) For Visit Diagnoses Date Provider Providers Copied on Encounter [facility], [address], [place], [place], [address], tel:[phone] Bhakti No Information 7 Bhakti Baum. [address], [place], [place], [address] , . tel: [phone] [facility], [address], [place], [place], [address], tel:[phone] Bhakti No Information 1 Bhakti Baum. [address], [place], [place], [id number] , [place]. tel: [phone] [facility], [address], [place], [place], [address], tel:[phone] Bhakti VACCIN FOR INFLUENZAJOINT EFFUSION-ANKLERHINI TIS DUE TO POLLENLOC PRIM OSTEOARTH-ANKLEOPEN WOUND OF FOREARMVACCINATION FOR DTP-DTAP 0 Bhakti Baum. [address], [place], [place], [id number] , [place]. tel: [phone] [employer], [address], [place], [place], [address], tel:[phone] Ya MALAISE AND FATIGUE NECELEV BL PRES W/O HYPERTNCHRONIC RHINITIS 0 Bhakti Baum. [address] [facility], [place], [place], [address] , . tel: [phone] [employer], [address], [place], [place], [address], tel:[phone] Ya ACUTE SINUSITIS NOS 0 Gali Dodge. [address] [facility], [place], [place], [address] . tel: [phone] [employer] [facility], [address], [place], [place], [address], tel:[phone] Ya No Information 7 9 Bhakti Baum. [facility] [employer] [facility], [place], [place], [address] , . tel: [phone] [employer] [facility], [address], [place], [place], [address], tel:[phone] Ya FX FOOT BONE NOS-CLOSED 4[address] 8 Bhakti Baum. [address] [place] [address], [id number] , . tel: [phone] Family History Family Member Type Diagnosis Age At Onset No Information Immunizations Vaccine Date Status Comments 22592 - Influenza administered Source: So urce Unspecified 89503 - Tetanus_Diptheria_Pertussis_Tdap administered Source: Source Unspecified Payers Payer name Insurance type Covered green party ID Authoriza tion(s) No Information Social History Type Description Quantity Date Captured Comments Alcohol Use Details Unknown Caffeine Use Details Unknown Tobacco Use Status No Information Smoking Status No Information Sex Female Chief Complaint And Reason For Visit No Information Reason For Referral Reason For Referral No Information History Of Present Illness Encounter Date Complaint History Of Prese nt Illness No Information Functional Status Date Functional Assessmen t No Information Instructions Date Instruction Additional Infor mation No Information Assessments Type Assessment Date No Information Patient Care Teams Name Effective Dates (start - stop) Status Members No Information
--- OUTSIDE RECORDS SUMMARY | 2024-06-28 11:23 | XMS_ITS | Encounter Summary ---
Author Organization [facility] Address [address] [place] [address] Care Team Providers Care It Intern Name Role Phone Unavailable Primary Care Provider Unavailabl e Encounter Details Date Type Department Care Team (Late st Contact Info) Description 02/19/2006 Outpatient Historical [facility] TRANSPORT MEDIC - Medical [place] B DEEPAK [address] [facility] [address] [address] Anatoly Stallings MD NO ADDRESS ON FILE Social History Tobacco Use Types Packs/Day Years Used Date Smoking Tobacco: Never Assessed Comments Unknown Sex and Gender Information Value Date Recorded Sex Assigned at Not on file Legal Sex Female 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
--- OUTSIDE RECORDS SUMMARY | 2024-06-28 11:23 | XMS_ITS | Encounter Summary ---
Author Organization [facility] [employer] Address [address] [place] [address] Care Team Providers Care Account Installer Name Role Phone Unavailable Primary Care Provider Unavailabl e Encounter Details Date Type Department Care Team (Latest Contact Info) Description 10/29/2006 Outpatient Historical [facility] Sprain and Strain of Unspecified Site of Foot (Primary Dx) Social History Tobacco Use Types Packs/Day Years Used Date Smoking Tobacco: Never Assessed Comments Unknown Sex and Gender Information Value Date Recorded Sex Assigned at Not on file Legal Sex Female 4:22 AM BARGE HAND Gender Identity Not on file Sexual Orientation Not on file documented as of this encounter Plan of Treatment Not on file documented as of this encounter Visit Diagnoses Diagnosis Sprain of foot, unspecified site- Primary documented in this encounter
--- OUTSIDE RECORDS SUMMARY | 2024-06-28 11:23 | XMS_ITS | Encounter Summary ---
Author Organization [facility] Address 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
--- OUTSIDE RECORDS SUMMARY | 2024-06-28 11:23 | XMS_ITS | Encounter Summary ---
Author Organization [facility] Address 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
--- OUTSIDE RECORDS SUMMARY | 2024-06-28 11:24 | XMS_ITS | Patient Health Record ---
Author Organization [facility] Address [address] [place] [address] Care Team Providers Care Parts Sales Counterperson Name Role Phone Kwaku Corrigan [phone] Reason For Referral No Information Problems Problem Type SNOMED Code ICD Code Onset Dates Problem Status W/U Status Risk Notes Problem Morbid obesity (disorder) (740040300) Morbid (severe) obesity due to excess calories (E66.01) Active confirmed Problem Chronic fatigue syndrome (disorder) (90084951) Chronic fatigue, unspecified (R53.82) Active confirmed Vital Signs Height 64 in 09/24/2023 Weight 200.6 lbs 09/24/2023 BMI 34.43 kg/m2 09/24/2023 Encounters Encounter Location Date Provider Diagnosis [address] [address] 06/30/2023 Kwaku Corrigan Morbid (severe) obesity due to excess calories E66.01 ; Chronic fatigue, unspecified R53.82 ; Other fatigue R53.83 and Other malaise R53.[address] [address] 07/09/2023 Kwaku Corrigan Morbid (severe) obesity due to excess calories E66.01 ; Chronic fatigue, unspecified R53.82 ; Other fatigue R53.83 and Other malaise R53.[address] [address] 07/23/2023 Kwaku Corrigan Morbid (severe) obesity due to excess calories E66.01 ; Chronic fatigue, unspecified R53.82 ; Other fatigue R53.83 and Other malaise R53.[address] [address] 08/06/2023 Kwaku Win Morbid (severe) obesity due to excess calories E66.01 ; Chronic fatigue, unspecified R53.82 ; Other fatigue R53.83 and Other malaise R53.81 [facility] ([address]) 2022 RENEE BUCHANAN [address] [place] [address] 09/03/2023 Kwaku Win Morbid (severe) obesity due to excess calories E66.01 ; Chronic fatigue, unspecified R53.82 ; Other fatigue R53.83 and Other malaise R53.81 [facility] ([address]) 2022 RENEE BU[address]N [address] [place] [address] 09/17/2023 Kwaku Win Morbid (severe) obesity due to excess calories E66.01 ; Chronic fatigue, unspecified R53.82 ; Other fatigue R53.83 and Other malaise R53.81 [facility] ([address]) 2022 RENEE BUCHANAN [address] [place] [address] 09/24/2023 Kwaku Win Morbid (severe) obesity due to excess calories E66.01 ; Chronic fatigue, unspecified R53.82 ; Other fatigue R53.83 and Other malaise R53.[address] [address] 07/16/2023 Kwaku Win Morbid (severe) obesity due to excess calories E66.01 ; Chronic fatigue, unspecified R53.82 ; Other fatigue R53.83 and Other malaise R53.[address] [address] 07/30/2023 Kwaku Win Morbid (severe) obesity due to excess calories E66.01 ; Chronic fatigue, unspecified R53.82 ; Other fatigue R53.83 and Other malaise R53.81 [facility] ([address]) [address]22 RENEE BUCHANAN [address] [place] [address] 08/20/2023 Kwaku Win Morbid (severe) obesity due to excess calories E66.01 ; Chronic fatigue, unspecified R53.82 ; Other fatigue R53.83 and Other malaise R53.81 [facility] [address] [place] [address] 08/27/2023 Kwaku Corrigan Morbid (severe) obesity due to excess calories E66.01 ; Chronic fatigue, unspecified R53.82 ; Other fatigue R53.83 and Other malaise R53.81 [facility] ([address]) 2022 RENEE BUCHANAN [address] [place] [address] 09/10/2023 Kwaku Corrigan Morbid (severe) obesity due to excess calories E66.01 ; Chronic fatigue, unspecified R53.82 ; Other fatigue R53.83 and Other malaise R53.81 Assessments Encounter Date Diagnosis (ICD Code) Assessment Notes Treatment Notes Treatment Clinical Notes Section Notes 06/30/2023 Morbid (severe) obesity due to excess calories (ICD-10 - E66.01) 07/09/2023 Morbid (severe) obesity due to excess calories (ICD-10 - E66.01) 07/16/2023 Morbid (severe) obesity due to excess calories (ICD-10 - E66.01) 07/23/2023 Morbid (severe) obesity due to excess calories (ICD-10 - E66.01) 07/30/2023 Morbid (severe) obesity due to excess calories (ICD-10 - E66.01) 08/06/2023 Morbid (severe) obesity due to excess calories (ICD-10 - E66.01) 08/20/2023 Morbid (severe) obesity due to excess calories (ICD-10 - E66.01) 08/27/2023 Morbid (severe) obesity due to excess calories (ICD-10 - E66.01) 09/03/2023 Morbid (severe) obesity due to excess calories (ICD-10 - E66.01) 09/10/2023 Morbid (severe) obesity due to excess calories (ICD-10 - E66.01) 09/17/2023 Morbid (severe) obesity due to excess calories (ICD-10 - E66.01) 09/24/2023 Morbid (severe) obesity due to excess calories (ICD-10 - E66.01) 09/24/2023 Chronic fatigue, unspecified (ICD-10 - R53.82) 09/17/2023 Chronic fatigue, unspecified (ICD-10 - R53.82) 09/10/2023 Chronic fatigue, unspecified (ICD-10 - R53.82) 09/03/2023 Chronic fatigue, unspecified (ICD-10 - R53.82) 08/27/2023 Chronic fatigue, unspecified (ICD-10 - R53.82) 08/20/2023 Chronic fatigue, unspecified (ICD-10 - R53.82) 08/06/2023 Chronic fatigue, unspecified (ICD-10 - R53.82) 07/30/2023 Chronic fatigue, unspecified (ICD-10 - R53.82) 07/23/2023 Chronic fatigue, unspecified (ICD-10 - R53.82) 07/16/2023 Chronic fatigue, unspecified (ICD-10 - R53.82) 07/09/2023 Chronic fatigue, unspecified (ICD-10 - R53.82) 06/30/2023 Chronic fatigue, unspecified (ICD-10 - R53.82) 06/30/2023 Other fatigue (ICD-10 - R53.83) 07/09/2023 Other fatigue (ICD-10 - R53.83) 07/16/2023 Other fatigue (ICD-10 - R53.83) 07/23/2023 Other fatigue (ICD-10 - R53.83) 07/30/2023 Other fatigue (ICD-10 - R53.83) 08/06/2023 Other fatigue (ICD-10 - R53.83) 08/20/2023 Other fatigue (ICD-10 - R53.83) 08/27/2023 Other fatigue (ICD-10 - R53.83) 09/03/2023 Other fatigue (ICD-10 - R53.83) 09/10/2023 Other fatigue (ICD-10 - R53.83) 09/17/2023 Other fatigue (ICD-10 - R53.83) 09/24/2023 Other fatigue (ICD-10 - R53.83) 09/24/2023 Other malaise (ICD-10 - R53.81) 09/17/2023 Other malaise (ICD-10 - R53.81) 09/10/2023 Other malaise (ICD-10 - R53.81) 09/03/2023 Other malaise (ICD-10 - R53.81) 08/27/2023 Other malaise (ICD-10 - R53.81) 08/20/2023 Other malaise (ICD-10 - R53.81) 08/06/2023 Other malaise (ICD-10 - R53.81) 07/30/2023 Other malaise (ICD-10 - R53.81) 07/23/2023 Other malaise (ICD-10 - R53.81) 07/16/2023 Other malaise (ICD-10 - R53.81) 07/09/2023 Other malaise (ICD-10 - R53.81) 06/30/2023 Other malaise (ICD-10 - R53.81) Plan Of Treatment No Information
--- OUTSIDE RECORDS SUMMARY | 2024-06-28 11:24 | XMS_ITS ---
Author Organization [facility]ela Address [address] [place] [address] Care Team Providers Care Family Support Worker Name Role Phone zzzzMigration, zzzzProvider Unavailable Unav ailable REASON FOR VISIT EMR-Arsenio Encounters Encounter Location Date Provider Diagnosis [facility] [address] [place] [address] 01/18/2023 zzzzProvider zzzzMigration Plan Of Treatment No Information Progress Notes * Neida ARMASOB: 1 (53 yo F)Acc No.[id number]:01/18/2023 Patient: Charisma PENNY :1970 A ge:52 Y S ex:Female Address:[address] [place], [address] Subjective: * Chief Complaints: * E MR-Arsenio * Medical History: * Surgical History: * Hospitalization/Major Diagno stic Procedure: * Medications: Objective: * Vitals: * Physical Examination: Assessment: Plan: * Treatment: * Procedure Codes: * true * Date: Generated for Printi ng/Faxing/eTransmitting on: 0 06/28/2024 11:23 AM CDT
--- OUTSIDE RECORDS SUMMARY | 2024-06-28 11:24 | XMS_ITS | Encounter Summary ---
Author Organization [facility] Address [address] [place] [address] Care Team Providers Care Crystal Syrup Maker Name Role Phone Unavailable Primary Care Provider Unavailabl e Encounter Details Date Type Department Care Team (Latest Contact Info) Description 07/31/1998 Inpatient Historical [facility] PATIENT IN A BED Other specified indication for care or intervention related to labor and delivery, delivered (Primary Dx) Social History Tobacco Use Types Packs/Day Years Used Date Smoking Tobacco: Never Assessed Comments Unknown Sex and Gender Information Value Date Recorded Sex Assigned at Not on file Legal Sex Female 4:22 AM SVP [employer] Gender Identity Not on file Sexual Orientation Not on file documented as of this encounter Plan of Treatment Not on file documented as of this encounter Visit Diagnoses Diagnosis Other specified indication for care or intervention related to labor and delivery, delivered- Primary documented in this encounter
--- OUTSIDE RECORDS SUMMARY | 2024-06-28 11:24 | XMS_ITS | Encounter Summary ---
Author Organization [facility] Address [address] [place] [address] Care Team Providers Care Contract Technical Writer Name Role Phone Unavailable Primary Care Provider Unavailabl e Encounter Details Date Type Department Care Team (Late st Contact Info) Description 07/17/1998 Outpatient Historical [facility] Anatoly Jaeger MD NO ADDRESS ON FILE Social History Tobacco Use Types Packs/Day Years Used Date Smoking Tobacco: Never Assessed Comments Unknown Sex and Gender Information Value Date Recorded Sex Assigned at Not on file Legal Sex Female 4:22 AM DIRECTOR BLOOD BANK Gender Identity Not on file Sexual Orientation Not on file documented as of this encounter Plan of Treatment Not on file documented as of this encounter Visit Diagnoses Not on filedocumented in this encounter
[2024-06-28 12:16] LABS: Basophils Percent Auto 0.5 % (0.2-1.2); Eosinophils Absolute Auto 0.1 K/mm3 (0-0.3); Eosinophils Percent Auto 1.7 % (0-4.4); Hematocrit 45.9 % (37.0-47.0); Hemoglobin 14.4 g/dL (12.0-15.0); Immature Granulocyte Absolute 0.01 K/mm3 (0.00-0.031); Immature Granulocyte Percent A 0.2 % (0-0.5); Lymphocytes Absolute Auto 1.44 K/mm3 (0.9-3.2); Lymphocytes Percent Auto 35.8 % (18.3-44.2); Mean Corpuscular HGB Conc 31.4 g/dl (32-36); Mean Corpuscular Hemoglobin 29.2 pg (26-34); Mean Corpuscular Volume 93.1 fl (80-100); Mean Platelet Volume 9.8 fl (7.4-10.4); Monocytes Absolute Auto 0.7 K/mm3 (0.1-0.6); Monocytes Percent Auto 17.9 % (2.6-8.5); Neutrophils Absolute Auto 1.8 K/mm3 (1.3-6.7); Neutrophils Percent Auto 43.9 % (45.5-73.1); Platelet Count Result 219 k/mm3 (150-375); Red Blood Count 4.93 M/mm3 (4.2-5.4); Red Cell Distribution Width 13.9 % (11.5-14.5)
[2024-06-28 12:25] LABS: Alanine Aminotransferase 22 U/L (6-35); Albumin Level 4.7 g/dL (3.5-5.1); Alkaline Phosphatase 58 U/L (38-126); Anion Gap 13 mmol/L (4-12); Aspartate Amino Transferase 22 U/L (14-36); Bilirubin,Total 0.5 mg/dL (0.2-1.3); Blood Urea Nitrogen 17 mg/dL (7-17); Calcium 9.3 mg/dL (8.4-10.2); Carbon Dioxide 25 mmol/L (22-30); Chloride 105 mmol/L (98-107); Estimated CRCL calculation 83 ml/min; Estimated Glomerular Filt Rate > 60; Glucose 90 mg/dL (65-110); Lipase 69 U/L (23-300); Potassium 3.7 mmol/L (3.4-5.0); Sodium 143 mmol/L (137-145)
[2024-06-28 12:29] LABS: Add Urine Microscopic? YES; Appearance Urine Clear (Clear); Bacteria Urine None Seen /hpf; Bilirubin Urine Negative (Negative); Blood Urine Negative (Negative); Color Urine Yellow (Yellow); Glucose Urine UA Negative (Negative); Ketones Urine Trace mg/dL (Negative); Leukocyte Esterase Ur Negative LEU/UL (Negative); Mucus Urine Present /lpf; Need Manual Microscopic Reviewed; Nitrate Urine Negative (Negative); Protein Urine 1+ mg/dL (Negative); Squamous Epithelial Cell Urine Occasional /hpf (Few); Urobilinogen Urine 0.2 mg/dL (<2.0); WBC Urine 0-5 /hpf (0-3); pH Urine 5.5 (5.0-9.0)
[2024-06-28] MEDS: SODIUM CHLORIDE 0.9% IV 1,000 ML 999 ML IV CONT (12:43)
[2024-06-28] MEDS: ONDANSETRON INJ 4 MG/2 ML VIAL IV PUSH (12:46)
[2024-06-28] MEDS: KETOROLAC 30 MG/ML VIAL (*BKC) IV PUSH (12:46)
[2024-06-28 12:50] LABS: Influenza A QL RT-PCR Negative (Negative); Influenza B QL RT-PCR Negative (Negative); RSV RNA, RT-PCR Negative (Negative); SARS-CoV-2 RNA PCR Negative (Negative)
--- NOTE | 2024-06-28 13:16 | ED_ITS ---
HPI - General Adult General Chief complaint: Abdominal Pain Stated complaint: abd pain Time Seen by Provider: 06/28/24 12:03 History of Present Illness HPI narrative: Patient is a 53-year-old female who presents ER with abdominal pain. Associated with diarrhea and vomiting. Ongoing for last 3 days. was sick with similar symptoms a day preceding her has already improved. No blood in stool. No blood in emesis. No documented fevers. Feels like she is dehydrated. No syncope. Patient gets crampy sharp pain with diarrhea but has had increased persistent discomfort over last 24 hours. More right-sided than left. Related Data Home Medications ?Medication ?Instructions ?Recorded ?Confirmed ?Last Taken ?Type melatonin 5 mg chewable tablet 5 mg PO DAILY 10/30/23 Unknown History mnrzzivn-uswpqjy-zxnz-lutein tablet tablet PO 10/30/23 Unknown History Allergies Allergy/AdvReac Type Severity Reaction Status Date / Time meperidine (From Demerol) Allergy Fainting Verified 06/28/24 12:14 Review of Systems 2 Review of Systems: All systems reviewed & are unremarkable except as noted in HPI and below Constitutional: Constitutional: Reports no additional constitutional complaints ENT: Reports system reviewed and no additional complaints, except as documented Cardiovascular: Cardiovascular: Reports no additional cardiovascular complaints Respiratory: Respiratory: Reports no additional respiratory complaints Gastrointestinal: Gastrointestinal: Reports no additional gastrointestinal complaints PMFSH Past Medical History Medical History (Updated 06/28/24 @ 14:03 by Diego Basilio MD) Trochanteric bursitis Obesity HTN (hypertension) Surgical History Surgical History (Updated 06/28/24 @ 13:18 by Diego Basilio MD) No pertinent past surgical history Family History Family History Mother Cancer Father Hypertension Social History Social History Smoking status: Never smoker Alcohol intake: current Substance use: never Substance use type: does not use Exam 2 Narrative: GENERAL: Well-appearing, well-nourished, and in no acute distress. HEAD: Normocephalic, atraumatic. CHEST: Clear to auscultation. No respiratory distress. HEART: Regular rate and rhythm. Normal peripheral pulses. ABDOMEN: Soft, nontender, nondistended. EXTREMITIES: Normal range of motion. No edema. SKIN: Warm, dry, no rash. NEURO: Alert and oriented x3. PSYCH: Normal mood and affect. Course Course Emergency Course: Feels improved with IV fluids/Zofran/Toradol. Abdomen is soft without guarding or rebound. Appropriate for discharge home with supportive care. Vital Signs Vital signs: Vital Signs Temperature 98.4 F 06/28/24 10:16 Pulse Rate 70 06/28/24 10:16 Respiratory Rate 16 06/28/24 10:16 Blood Pressure 149/93 H 06/28/24 10:16 Pulse Oximetry 96 06/28/24 10:16 Temperature 98.4 F 06/28/24 10:16 Pulse Rate 70 06/28/24 10:16 Respiratory Rate 16 06/28/24 10:16 Blood Pressure 149/93 H 06/28/24 10:16 Pulse Oximetry 96 06/28/24 10:16 Medical Decision Making Vital Signs Vital Signs: Vital Signs Temperature 98.4 F 06/28/24 10:16 Pulse Rate 70 06/28/24 10:16 Respiratory Rate 16 06/28/24 10:16 Blood Pressure 149/93 H 06/28/24 10:16 Pulse Oximetry 96 06/28/24 10:16 Temperature 98.4 F 06/28/24 10:16 Pulse Rate 70 06/28/24 10:16 Respiratory Rate 16 06/28/24 10:16 Blood Pressure 149/93 H 06/28/24 10:16 Pulse Oximetry 96 06/28/24 10:16 Lab Data 06/28/24 12:05 06/28/24 12:05 Labs: Lab Results 06/28/24 Range/Units 12:05 WBC 4.0 L (4.5-10.0) K/mm3 RBC 4.93 (4.2-5.4) M/mm3 Hgb 14.4 (12.0-15.0) g/dL Hct 45.9 (37.0-47.0) % MCV 93.1 (80-100) fl MCH 29.2 (26-34) pg MCHC 31.4 L (32-36) g/dl RDW 13.9 (11.5-14.5) % Plt Count 219 (150-375) k/mm3 MPV 9.8 (7.4-10.4) fl Immature Gran % (Auto) 0.2 (0-0.5) % Neut % (Auto) 43.9 L (45.5-73.1) % Lymph % (Auto) 35.8 (18.3-44.2) % [place] % (Auto) 17.9 H (2.6-8.5) % Eos % (Auto) 1.7 (0-4.4) % Baso % (Auto) 0.5 (0.2-1.2) % Lymph # (Auto) 1.44 (0.9-3.2) K/mm3 [place] # (Auto) 0.7 H (0.1-0.6) K/mm3 Eos # (Auto) 0.1 (0-0.3) K/mm3 Baso # (Auto) 0.0 (0.0-0.1) K/mm3 Abs Immat Gran (auto) 0.01 (0.00-0.031) K/mm3 Absolute Neuts (auto) 1.8 (1.3-6.7) K/mm3 Absolute Nucleated RBC 0.000 (0.0-0.012) K/mm3 Nucleated RBC % 0.0 (0.0-0.2) % Sodium 143 (137-145) mmol/L Potassium 3.7 (3.4-5.0) mmol/L Chloride 105 (98-107) mmol/L Carbon Dioxide 25 (22-30) mmol/L Anion Gap 13 H (4-12) mmol/L BUN 17 (7-17) mg/dL Creatinine 0.76 (0.7-1.0) mg/dL Estim Creat Clear Calc 83 ml/min Estimated GFR > 60 (59 - ) Glucose 90 (65-110) mg/dL Calcium 9.3 (8.4-10.2) mg/dL Total Bilirubin 0.5 (0.2-1.3) mg/dL AST 22 (14-36) U/L ALT 22 (6-35) U/L Alkaline Phosphatase 58 (38-126) U/L Total Protein 8.0 (6.3-8.2) g/dL Albumin 4.7 (3.5-5.1) g/dL Lipase 69 (23-300) U/L Urine Color Yellow (Yellow) Urine Appearance Clear (Clear) Urine pH 5.5 (5.0-9.0) Ur Specific [place] 1.030 (1.001-1.035) Urine Protein 1+ H (Negative) mg/dL Urine Glucose (UA) Negative (Negative) mg/dL Urine Ketones Trace H (Negative) mg/dL Ur Blood (Man) Negative (Negative) Urine Nitrate Negative (Negative) Urine Bilirubin Negative (Negative) Urine Urobilinogen 0.2 (<2.0) mg/dL Add Ur Microanalysis Reviewed Leukocyte Esterase Rfl Negative (Negative) SAIF/UL Urine RBC 3-5 H (0-2) /hpf Urine WBC 0-5 (0-3) /hpf Ur Squamous Epith Cells Occasional (Few) /hpf Urine Bacteria None seen /hpf Urine Casts 3-5 Urine Mucus Present /lpf Influenza A (RT-PCR) Negative (Negative) Influenza B (RT-PCR) Negative (Negative) RSV (RT-PCR) Negative (Negative) SARS-CoV-2 RNA (RT-PCR) Negative (Negative) Discharge Plan Discharge Clinical Impression: Gastroenteritis Patient Disposition: Home, Self-Care Condition: Stable Instructions: Gastroenteritis (ED) Additional Instructions: Please drink plenty of fluids at home. Return to the emergency department if you develop high fevers, have persistent severe abdominal pain, or have bloody stools or vomit, as these could be signs of a more serious medical emergency. Return to the emergency department if you are unable to keep down liquids because of severe nausea/vomiting. Patient Language: Romansh Prescriptions: New simethicone 125 mg capsule 125 mg PO QID Qty: 20 0RF Rx Instructions: administer after meals and at bedtime dicyclomine 20 mg tablet 20 mg PO QID Qty: 20 0RF ondansetron 4 mg tablet,disintegrating 4 mg PO Q6H PRN (Reason: nausea and vomiting) Qty: 10 0RF No Action vgembkbr-ogmhaaa-gtwm-lutein Tablet PO melatonin 5 mg tablet,chewable 5 mg PO DAILY lisinopril 5 mg tablet 5 mg PO DAILY Qty: 90 1RF scopolamine base 1 mg over 3 days patch 3 day 1 patch transdermal Q72H PRN (Reason: seasickness) Qty: 4 0RF Rx Instructions: Apply 1 patch (1 mg/3 days) behind ear at least 4 hours prior to required antiemetic effect needed amlodipine 2.5 mg tablet 2.5 mg PO DAILY Qty: 90 0RF Follow-up/Referrals: UNKNOWN,DOCTOR [Primary Care Provider] - 1 Week
--- OUTSIDE RECORDS SUMMARY | 2024-06-28 13:27 | XMS_ITS | Encounter Summary ---
Author Organization [facility] Address [address] [place] [address] Care Team Providers Care Retail Coverage Merchandiser Name Role Phone Unavailable Primary Care Provider [...] on file Legal Sex Female 4:22 AM PARCEL CONTRACTOR Gender Identity Not on file Sexual Orientation Not on file documented as of this encounter Plan of Treatment Not on file documented as of this encounter Visit Diagnoses Diagnosis Pain in limb- Primary documented in this encounter
--- OUTSIDE RECORDS SUMMARY | 2024-06-28 13:27 | XMS_ITS | Encounter Summary ---
Author Organization [facility] Address [address] [place] [address] Care Team Providers Care Sales Representative Supervisor Name Role Phone Unavailable Primary Care Provider Unavailabl e Encounter Details Date Type Department Care Team (Late st Contact Info) Description 12/31/2006 Outpatient Historical [facility] Medicine - [place] [address] [place] [address] Bautista Brown MD [address] [place], [place] [id number] Social History Tobacco Use Types Packs/Day Years Used Date Smoking Tobacco: Never Assessed Comments Unknown Sex and Gender Information Value Date Recorded Sex Assigned at Not on file Legal Sex Female 4:22 AM CHIEF CLIENT OFFICER Gender Identity Not on file Sexual Orientation Not on file documented as of this encounter Plan of Treatment Not on file documented as of this encounter Visit Diagnoses Not on filedocumented in this encounter
--- OUTSIDE RECORDS SUMMARY | 2024-06-28 13:27 | XMS_ITS | Encounter Summary ---
Author Organization [facility] Address [address] [place] [address] Care Team Providers Care Finished Cigar Maker Name Role Phone Unavailable Primary Care Provider Unavailabl e Encounter Details Date Type Department Care Team (Late st Contact Info) Description 01/22/2006 Outpatient Historical [facility] EXTRUSION PRESS SUPERVISOR - Medical [place] [address] [address] Anatoly Stallings MD NO ADDRESS ON FILE Social History Tobacco Use Types Packs/Day Years Used Date Smoking Tobacco: Never Assessed Comments Unknown Sex and Gender Information Value Date Recorded Sex Assigned at Not on file Legal Sex Female 4:22 AM DIRECTOR OF MAINTENANCE Gender Identity Not on file Sexual Orientation Not on file documented as of this encounter Plan of Treatment Not on file documented as of this encounter Visit Diagnoses Not on filedocumented in this encounter
--- OUTSIDE RECORDS SUMMARY | 2024-06-28 13:27 | XMS_ITS | Encounter Summary ---
Author Organization [facility] Address [address] [place] [address] Care Team Providers Care Plumbing Inspector Name Role Phone Unavailable Primary Care Provider [...] on file Legal Sex Female 4:22 AM ENTRY LEVEL MECHANICAL ENGINEER Gender Identity Not on file Sexual Orientation Not on file documented as of this encounter Plan of Treatment Not on file documented as of this encounter Visit Diagnoses Not on filedocumented in this encounter
--- OUTSIDE RECORDS SUMMARY | 2024-06-28 13:27 | XMS_ITS | Encounter Summary ---
Author Organization [facility] Address [address] [place] [address] Care Team Providers Care Customer Service Advisor Name Role Phone Unavailable Primary Care Provider Unavailabl e Encounter Details Date Type Department Care Team (Late st Contact Info) Description 01/27/2002 Outpatient Historical [facility] Medicine - [place] [address] [facility] [address] [place] [address] [place] [address] [place] [address] Social History Tobacco Use Types Packs/Day Years Used Date Smoking Tobacco: Never Assessed Comments Unknown Sex and Gender Information Value Date Recorded Sex Assigned at Not on file Legal Sex Female 4:22 AM DEPOSIT REFUND CLERK Gender Identity Not on file Sexual Orientation Not on file documented as of this encounter Plan of Treatment Not on file documented as of this encounter Visit Diagnoses Not on filedocumented in this encounter
--- OUTSIDE RECORDS SUMMARY | 2024-06-28 13:27 | XMS_ITS | Encounter Summary ---
Author Organization [facility] Address [address] Brown: Epic Prelude ADT [place] [address] Care Team Providers Care Folder Hand Name Role Phone Unavailable Primary Care Provider Unavailabl e Encounter Details Date Type Department Care Team (Late st Contact Info) Description 11/22/1991 Outpatient Historical Social History Tobacco Use Types Packs/Day Years Used Date Smoking Tobacco: Never Assessed Comments Unknown Sex and Gender Information Value Date Recorded Sex Assigned at Not on file Legal Sex Female 4:22 AM OUTBOUND TELEMARKETER Gender Identity Not on file Sexual Orientation Not on file documented as of this encounter Plan of Treatment Not on file documented as of this encounter Visit Diagnoses Not on filedocumented in this encounter
--- OUTSIDE RECORDS SUMMARY | 2024-06-28 13:27 | XMS_ITS | Encounter Summary ---
Author Organization [facility] Address [address] [place] [address] Care Team Providers Care Cop Breaker Name Role Phone Unavailable Primary Care Provider [...] on file Legal Sex Female 4:22 AM ESCROW SECRETARY Gender Identity Not on file Sexual Orientation Not on file documented as of this encounter Plan of Treatment Not on file documented as of this encounter Visit Diagnoses Diagnosis Unspecified symptom associated with female genital organs- Primary documented in this encounter
--- OUTSIDE RECORDS SUMMARY | 2024-06-28 13:27 | XMS_ITS | Encounter Summary ---
Author Organization [employer] Address [address] [place] [address] Care Team Providers Care Manager Shift Name Role Phone Unavailable Primary Care Provider [...] on file Legal Sex Female 4:22 AM INSTALLATION TECH Gender Identity Not on file Sexual Orientation Not on file documented as of this encounter Plan of Treatment Not on file documented as of this encounter Visit Diagnoses Diagnosis Other specified indication for care or intervention related to labor and delivery, delivered- Primary documented in this encounter
--- OUTSIDE RECORDS SUMMARY | 2024-06-28 13:27 | XMS_ITS | Continuity of Care Document ---
Author Organization [facility] Address [address] [place] [address] Phone Care Team Providers Care Template Fitter Name Role Phone Bautista Ya DO Unavailable [...] Diagnoses Date Provider Providers Copied on Encounter Zentyal, [address], [place], [place], [address], tel:[phone] Bhakti No Information 7 Bhakti Baum. [address], [place], [place], [id number] , . tel: [phone] Zentyal, [address], [place], [place], [address], tel:[phone] Bhakti No Information 1 Bhakti Baum. [address], [place], [place], [id number] , [place]. tel: [phone] Zentyal, [address], [place], [place], [address], tel:[phone] Bhakti VACCIN FOR INFLUENZAJOINT EFFUSION-ANKLERHINI TIS DUE TO POLLENLOC PRIM OSTEOARTH-ANKLEOPEN WOUND OF FOREARMVACCINATION FOR DTP-DTAP 0 Bhakti Baum. [address], [place], [place], [id number] , [place]. tel: [phone] Zentyal, [address], [place], [place], [address], tel:[phone] Ya MALAISE AND FATIGUE NECELEV BL PRES W/O HYPERTNCHRONIC RHINITIS 0 Bhakti Baum. [address] [facility], [place], [place], [id number] , . tel: [phone] Zentyal, [address], [place], [place], [address], tel:[phone] Ya ACUTE SINUSITIS NOS 0 Gali Dodge. [address] [facility], [place], [place], [address] . tel: [phone] Zentyal, [address], [place], [place], [address], tel:[phone] Ya No Information 7 9 Bhakti Baum. [facility] [employer] [facility], [place], [place], [address] , . tel: [phone] Zentyal, [address], [place], [place], [address], tel:[phone] Ya FX FOOT BONE NOS-CLOSED 4200 8 Bhakti Baum. [address] [place] [address], [id number] , . tel: [phone] Family History Family Member Type Diagnosis Age At Onset No Information Immunizations Vaccine Date Status Comments 52625 - Influenza administered Source: So urce Unspecified 34107 - Tetanus_Diptheria_Pertussis_Tdap administered Source: Source Unspecified Payers Payer name Insurance type Covered republican ID Authoriza tion(s) No Information Social History [...]
--- OUTSIDE RECORDS SUMMARY | 2024-06-28 13:27 | XMS_ITS | Encounter Summary ---
Author Organization [facility] Address [address] [place] [address] Care Team Providers Care Bridal Service Sales And Management Name Role Phone Unavailable Primary Care Provider Unavailabl e Encounter Details Date Type Department Care Team (Late st Contact Info) Description 05/28/2002 Outpatient Historical [facility] Medicine - [place] [address] [facility] [address] [place] [address] [place] [address] [place] [address] Social History Tobacco Use Types Packs/Day Years Used Date Smoking Tobacco: Never Assessed Comments Unknown Sex and Gender Information Value Date Recorded Sex Assigned at Not on file Legal Sex Female 4:22 AM STAINED GLASS WINDOW DESIGNER Gender Identity Not on file Sexual Orientation Not on file documented as of this encounter Plan of Treatment Not on file documented as of this encounter Visit Diagnoses Not on filedocumented in this encounter
--- OUTSIDE RECORDS SUMMARY | 2024-06-28 13:27 | XMS_ITS | Encounter Summary ---
Author Organization [facility] Address [address] [place] [address] Care Team Providers Care Finish Mill Operator Name Role Phone Unavailable Primary Care Provider [...] on file Legal Sex Female 4:22 AM BUSINESS DEVELOPMENT CONSULTANT Gender Identity Not on file Sexual Orientation Not on file documented as of this encounter Plan of Treatment Not on file documented as of this encounter Visit Diagnoses Diagnosis Pain in limb- Primary documented in this encounter
--- OUTSIDE RECORDS SUMMARY | 2024-06-28 13:27 | XMS_ITS | Encounter Summary ---
Author Organization [employer] [facility] Address [address] [place] [address] Care Team Providers Care Production Gear Cutter Name Role Phone Unavailable Primary Care [...] on file Legal Sex Female 4:22 AM INSTALLMENT LOAN COLLECTOR Gender Identity Not on file Sexual Orientation Not on file documented as of this encounter Plan of Treatment Not on file documented as of this encounter Visit Diagnoses Not on filedocumented in this encounter
--- OUTSIDE RECORDS SUMMARY | 2024-06-28 13:27 | XMS_ITS | Encounter Summary ---
Author Organization [facility] Address [address] [place] [address] Care Team Providers Care Matrix Inspector Name Role Phone Unavailable Primary Care Provider Unavailabl e Encounter Details Date Type Department Care Team (Latest Contact Info) Description 01/06/2006 Outpatient Historical [facility] Screening Mammogram for High-Risk Patient (Primary Dx) Social History Tobacco Use Types Packs/Day Years Used Date Smoking Tobacco: Never Assessed Comments Unknown Sex and Gender Information Value Date Recorded Sex Assigned at Not on file Legal Sex Female 4:22 AM MAC ARTIST Gender Identity Not on file Sexual Orientation Not on file documented as of this encounter Plan of Treatment Not on file documented as of this encounter Visit Diagnoses Diagnosis Screening mammogram for high-risk patient- Primary documented in this encounter
--- OUTSIDE RECORDS SUMMARY | 2024-06-28 13:27 | XMS_ITS | Clinical Summary ---
Author Organization [facility] [employer] Address [address] [place] [address] Care Team Providers Care Construction Job Titles Name Role Phone Papa Manuel MD Unavailable [phone] Jaswinder Rodriguez MD Primary Care Provider [phone] Source Comments [facility],non-owned Affiliates and Associated Physician Practices is amultiple site organization consisting of ambulatory clinics and hospital sitesin [place], [place] and [place]. This disclosure is being madepursuant to the Care Everywhere program and may not contain all information available regarding this patient. Last updated 17.[facility] Allergies Active Allergy Reactions Criticality Noted [...] Comments CAD (Coronary Artery Disease) Father from [place] age 44; Status: High Cholesterol Father Cancer [...] file Gender Identity Female 04/17/2023 8:14 PM PERINATAL SPECIALIST Sexual Orientation Not on file Last Filed Vital Signs Vital Sign Reading Time Taken Comments Blood Pressure 136/84 06/23/2023 8:56 AM CDT Pulse 76 06/23/2023 8:56 AM CDT Temperature 35.9 C (96.7 F) 04/26/2022 11:48 AM PERINATAL SPECIALIST Respiratory Rate 12 04/26/2022 12:15 PM PERINATAL SPECIALIST Oxygen Saturation 99% 04/26/2022 12:15 PM PERINATAL SPECIALIST Inhaled Oxygen Concentration - - Weight 86.2 kg (190 lb) 06/23/2023 8:56 AM CDT Height 162.6 cm (5' 4 ) 04/26/2022 9:13 AM PERINATAL SPECIALIST Body Mass Index 32.61 04/26/2022 9:13 AM PERINATAL SPECIALIST Plan of Treatment Health Maintenance Due Date [...] Comments LIPID PROFILE Routine 05/29/2023 9:40 AM PERINATAL SPECIALIST Lipid screening ENDOSCOPY, COLON, SCREENING Routine 04/26/2022 11:11 AM PERINATAL SPECIALIST MAMMOGRAM Routine 04/20/2019 from Last 3 Months or Most Recently Relevant to Health Maintenance Results * (ABNORMAL) LIPID PROFILE (05/29/2023 9:40 AM PERINATAL SPECIALIST) Cholesterol 174 100 - 199 mg/dL [facility] [...] BLOOD SPECIMEN / Unknown 05/29/2023 9:40 AM PERINATAL SPECIALIST 05/29/2023 Narrative [facility] INSURANCE BILL - 05/30/2023 10:36 AM PERINATAL SPECIALIST A courtesy copy of this report has been sent to [facility], [facility] [place], Resulting Agency Comment [facility] at: [facility] [address] [facility] [id number] Jaswinder Rodriguez MD LAB - CHEMISTRY [facility] D[facility] INS[facility] BILL [address] [place] [address] * ENDOSCOPY, COLON, SCREENING (04/26/2022 11:11 AM PERINATAL SPECIALIST) Report Endoscopy POC Endoscopy Department Report _ [...] bowel preparation was evaluated using the BBPS (Donaldson Bowel Preparation Scale) with scores of: Right [...] malignant neoplasm of colon CPT copyright 2019 [employer]. All rights reserved. The codes documented in this report are preliminary and upon poultry offal icer review may be revised to meet current compliance requirements. Darcy Ashton MD, 04/26/2022 11:55:00 AM This report has been signed electronically. Note Initiated On: 04/26/2022 11:11 AM Number of Addenda: [address] [address] [facility] 04/26/2022 11:1 1 AM PERINATAL SPECIALIST Darcy Ashton MD GI PROCEDURE ORDERAB LES [facility] * MAMMOGRAM (04/20/2019) Anatomical Region Laterality Modality Other Historical Provider SCANNING ONLY from Last 3 Months or Most Recently Relevant to Health Maintenance Care Teams Construction Job Titles Relationship Specialty Start [place] [address] [place] [address] PCP - General 04/16/19 [place] [address] [place] [address] Orthopedic Surgery 05/16/17
--- OUTSIDE RECORDS SUMMARY | 2024-06-28 13:27 | XMS_ITS | Encounter Summary ---
Author Organization [employer] [facility] Address [address] [place] [address] Care Team Providers Care Transmission And Protection Engineer Name Role Phone Unavailable Primary Care [...] on file Legal Sex Female 4:22 AM DRYING UNIT FELTING MACHINE OPERATOR Gender Identity Not on file Sexual Orientation Not on file documented as of this encounter Plan of Treatment Not on file documented as of this encounter Visit Diagnoses Not on filedocumented in this encounter
--- OUTSIDE RECORDS SUMMARY | 2024-06-28 13:27 | XMS_ITS | Encounter Summary ---
Author Organization [facility] Address [address] [place] [address] Care Team Providers Care Dairy Frozen Manager Name Role Phone Unavailable Primary Care Provider Unavailabl e Encounter Details Date Type Department Care Team (Late st Contact Info) Description 05/10/2005 Outpatient Historical [facility] Medicine - [address] [place] [address] [facility] [address] [place] [address] [place] [address] [place] [address] Social History Tobacco Use Types Packs/Day Years Used Date Smoking Tobacco: Never Assessed Comments Unknown Sex and Gender Information Value Date Recorded Sex Assigned at Not on file Legal Sex Female 4:22 AM BED SETTER Gender Identity Not on file Sexual Orientation Not on file documented as of this encounter Plan of Treatment Not on file documented as of this encounter Visit Diagnoses Not on filedocumented in this encounter
--- OUTSIDE RECORDS SUMMARY | 2024-06-28 13:27 | XMS_ITS | Encounter Summary ---
Author Organization [employer] Address [address] [place] [address] Care Team Providers Care Interlocker Name Role Phone Unavailable Primary Care Provider [...] on file Legal Sex Female 4:22 AM SUPERVISOR FORMING AND TEMPERING Gender Identity Not on file Sexual Orientation Not on file documented as of this encounter Plan of Treatment Not on file documented as of this encounter Visit Diagnoses Not on filedocumented in this encounter
--- OUTSIDE RECORDS SUMMARY | 2024-06-28 13:27 | XMS_ITS | Encounter Summary ---
Author Organization [facility] Address [address] [place] [address] Care Team Providers Care Card Clothier Name Role Phone Unavailable Primary Care Provider Unavailabl e Encounter Details Date Type Department Care Team (Latest Contact Info) Description 08/07/1998 Outpatient Historical [facility] [place] (Primary Dx) Social History Tobacco Use Types Packs/Day Years Used Date Smoking Tobacco: Never Assessed Comments Unknown Sex and Gender Information Value Date Recorded Sex Assigned at Not on file Legal Sex Female 4:22 AM AMBULETTE DRIVER Gender Identity Not on file Sexual Orientation Not on file documented as of this encounter Plan of Treatment Not on file documented as of this encounter Visit Diagnoses Diagnosis Fl[place]- Primary documented in this encounter
--- OUTSIDE RECORDS SUMMARY | 2024-06-28 13:27 | XMS_ITS | Encounter Summary ---
Author Organization [employer] Address 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
--- OUTSIDE RECORDS SUMMARY | 2024-06-28 13:27 | XMS_ITS | Encounter Summary ---
Author Organization [employer] [facility] Address [address] [place] [address] Care Team Providers Care Plastic Cnc Machine Operator Name Role Phone Unavailable Primary Care [...] on file Legal Sex Female 4:22 AM WEB PRESS ROLL TENDER Gender Identity Not on file Sexual Orientation Not on file documented as of this encounter Plan of Treatment Not on file documented as of this encounter Visit Diagnoses Not on filedocumented in this encounter
--- OUTSIDE RECORDS SUMMARY | 2024-06-28 13:27 | XMS_ITS | Encounter Summary ---
Author Organization [facility] Address [address] [place] [address] Care Team Providers Care Caustic Strength Inspector Name Role Phone Unavailable Primary Care Provider Unavailabl e Encounter Details Date Type Department Care Team (Late st Contact Info) Description 09/10/2006 Outpatient Historical [facility] Medicine - [place] [address] [facility] [address] [place] [address] Bautista Brown MD [address] [facility] [place], [place] [id number] Social History Tobacco Use Types Packs/Day Years Used Date Smoking Tobacco: Never Assessed Comments Unknown Sex and Gender Information Value Date Recorded Sex Assigned at Not on file Legal Sex Female 4:22 AM SALES REPRESENTATIVE RAW FIBERS Gender Identity Not on file Sexual Orientation Not on file documented as of this encounter Plan of Treatment Not on file documented as of this encounter Visit Diagnoses Not on filedocumented in this encounter
--- OUTSIDE RECORDS SUMMARY | 2024-06-28 13:27 | XMS_ITS | Encounter Summary ---
Author Organization [facility] Address [address] [place] [address] Care Team Providers Care Automatic Vulcanizing Lead Operator Name Role Phone Unavailable Primary Care Provider Unavailabl e Encounter Details Date Type Department Care Team (Late st Contact Info) Description 02/02/2002 Outpatient Historical [facility] Medicine [facility] [address] [facility] [address] [place] [address] Corey Mendoza MD [address] [place] [address] [address] [place] [address] Social History Tobacco Use Types Packs/Day Years Used Date Smoking Tobacco: Never Assessed Comments Unknown Sex and Gender Information Value Date Recorded Sex Assigned at Not on file Legal Sex Female 4:22 AM OPERATIONS PLANT ATTENDANT Gender Identity Not on file Sexual Orientation Not on file documented as of this encounter Plan of Treatment Not on file documented as of this encounter Visit Diagnoses Not on filedocumented in this encounter
--- OUTSIDE RECORDS SUMMARY | 2024-06-28 13:27 | XMS_ITS | Clinical Summary ---
Author Organization [facility] Address [address] [place] [address] Phone Care Team Providers Care Director Security Management Name Role Phone Unavailable Primary Care [...] on file Legal Sex Female 4:22 AM CARE REP Gender Identity Not on file Sexual Orientation Not on file Last Filed Vital Signs Vital Sign Reading Time Taken Comments Blood Pressure 116/80 04/16/2022 11:01 AM CARE REP Pulse - - Temperature - - Respiratory Rate - - Oxygen Saturation - - Inhaled Oxygen Concentration - - Weight 89.8 kg (198 lb) 04/16/2022 11:01 AM CARE REP Height - - Body Mass Index - [...] BASED SCREEN PAP Routine 04/16/2022 11:13 AM CARE REP Encounter for gynecological examination without abnormal finding [...] AGE BASED SCREEN PAP (04/16/2022 11:13 AM CARE REP) COMMENT (PAP): [facility] [place] [facility] Comment: This order for age-based cervical cancer and STI screening follows ACOG guidelines(PB 168, 140, ZJN532). See individual assays for performing site location. CLINICAL INFORMATION [facility] [place] [facility] Comment:None given LAST MENSTRUAL PERIOD [facility] [place] [facility] Comment:NONE GIVEN PREV PAP: [facility] [place] [facility] Comment:NONE GIVEN PREV BX: [facility] [place] [facility] Comment:NONE GIVEN SOURCE [facility] [place] Comment:Endocervix ADEQUACY: [facility] [place] [facility] Comment: Satisfactory for evaluation. Endocervical/transformation zone component present. Age and/or menstrual status not provided PAP INTERP [facility] [place] [facility] Comment:Negative for intraep ithelial lesion or malignancy. COMMENT (PAP TEST) [facility] [place] Comment: This Pap test has been evaluated with computer assisted technology. NETWORK ARCHITECT: [facility] [place] Comment: BARRETT, CT(ASCP) CT Screening location: [address] [place] [address] EXPLANATORY NOTE [email or web address] [place] Comment: EXPLANATORY NOTE: The Pap is a [...] information. HPV E6/E7 Not Detected Not Detected [facility] [place] Comment: Methodology: Stone Trimmer-Mediated Amplification This assay detects E6/E7 viral messenger RNA (mRNA) from 14 high-risk HPV types (16,18,31,33,35,39,45,51,52,56,58,59,66,68). Cervical sources are required for HPV testing. If a vaginal source from a patient who has had a total hysterectomy with removal of cervix was submitted, please contact the testing laboratory for alternative testing options. For additional information, please refer to http://education.Digicompanion/faq/KVK490q3 (This link if provided for information/ educational purposes only.) Test Performed at: [email or web address] [id number] [id number] Bautista Ivory D.O., MPH SL Genital SWAB OF ENDOCERVIX / Unknown 04/16/2022 11:13 AM CARE REP 04/16/2022 10:11 PM CARE REP Sameer Levin MD PATHOLOGY/CYTOLOGY ORD ERABLES Final Result [facility] [phone] [email or web address] [id number] [id number] from Last 3 Months or Most Recently Relevant to Health Maintenance Insurance [facility] OPEN ACCESS HMO [facility] BLUE ACCESS CHOICE HEALTH
--- OUTSIDE RECORDS SUMMARY | 2024-06-28 13:27 | XMS_ITS | Encounter Summary ---
Author Organization [facility] Address [address] [place] [address] Care Team Providers Care Tabular Typist Name Role Phone Unavailable Primary Care Provider Unavailabl e Encounter Details Date Type Department Care Team (Late st Contact Info) Description 02/22/[address] [facility] Medicine - [place] [address] [facility] [facility] [address] [place] [address] [place] [address] [place] [address] Social History Tobacco Use Types Packs/Day Years Used Date Smoking Tobacco: Never Assessed Comments Unknown Sex and Gender Information Value Date Recorded Sex Assigned at Not on file Legal Sex Female 4:22 AM ASSOCIATE MEDIA DIRECTOR Gender Identity Not on file Sexual Orientation Not on file documented as of this encounter Plan of Treatment Not on file documented as of this encounter Visit Diagnoses Not on filedocumented in this encounter
--- OUTSIDE RECORDS SUMMARY | 2024-06-28 13:27 | XMS_ITS | Encounter Summary ---
Author Organization [employer] Address [address] [place] [address] Care Team Providers Care Hearing Dog Trainer Name Role Phone Unavailable Primary Care Provider [...] on file Legal Sex Female 4:22 AM ROUTE SALES DELIVERY DRIVER Gender Identity Not on file Sexual Orientation Not on file documented as of this encounter Plan of Treatment Not on file documented as of this encounter Visit Diagnoses Not on filedocumented in this encounter
--- OUTSIDE RECORDS SUMMARY | 2024-06-28 13:27 | XMS_ITS | Encounter Summary ---
Author Organization [employer] [facility] Address [address] [place] [address] Care Team Providers Care Wallpaperer Name Role Phone Unavailable Primary Care Provider [...]
--- OUTSIDE RECORDS SUMMARY | 2024-06-28 13:27 | XMS_ITS | Encounter Summary ---
Author Organization [facility] Address [address] [place] [address] Care Team Providers Care Vpk Teacher Name Role Phone Unavailable Primary Care Provider Unavailabl e Encounter Details Date Type Department Care Team (Late st Contact Info) Description 02/19/2006 Outpatient Historical [facility] ROADS SUPERINTENDENT - Medical Sterling [address] [facility] [address] [address] Anatoly Stallings MD NO ADDRESS ON FILE Social History Tobacco Use Types Packs/Day Years Used Date Smoking Tobacco: Never Assessed Comments Unknown Sex and Gender Information Value Date Recorded Sex Assigned at Not on file Legal Sex Female 4:22 AM FUEL TANK SEALER AND TESTER Gender Identity Not on file Sexual Orientation Not on file documented as of this encounter Plan of Treatment Not on file documented as of this encounter Visit Diagnoses Not on filedocumented in this encounter
--- OUTSIDE RECORDS SUMMARY | 2024-06-28 13:27 | XMS_ITS | Encounter Summary ---
Author Organization [facility] Address [address] [place] [address] Care Team Providers Care Tile Layer Drainage Name Role Phone Unavailable Primary Care Provider Unavailabl e Encounter Details Date Type Department Care Team (Late st Contact Info) Description 12/04/2006 Outpatient Historical [facility] Medicine - [place] [address] [facility] [address] [place] [address] Bautista Brown MD [address] [facility] [place], [place] [id number] Social History Tobacco Use Types Packs/Day Years Used Date Smoking Tobacco: Never Assessed Comments Unknown Sex and Gender Information Value Date Recorded Sex Assigned at Not on file Legal Sex Female 4:22 AM TOE STAPLER Gender Identity Not on file Sexual Orientation Not on file documented as of this encounter Plan of Treatment Not on file documented as of this encounter Visit Diagnoses Not on filedocumented in this encounter
--- OUTSIDE RECORDS SUMMARY | 2024-06-28 13:27 | XMS_ITS | Encounter Summary ---
Author Organization [employer] [facility] Address [address] [place] [address] Care Team Providers Care Jewelry Sales Associate Name Role Phone Unavailable Primary Care Provider [...] on file Legal Sex Female 4:22 AM SOLID WASTE ENGINEER Gender Identity Not on file Sexual Orientation Not on file documented as of this encounter Plan of Treatment Not on file documented as of this encounter Visit Diagnoses Not on filedocumented in this encounter
--- OUTSIDE RECORDS SUMMARY | 2024-06-28 13:27 | XMS_ITS | Encounter Summary ---
Author Organization [facility] Address [address] [place] [address] Care Team Providers Care Poultry Farm Laborer Name Role Phone Unavailable Primary Care Provider Unavailabl e Encounter Details Date Type Department Care Team (Late st Contact Info) Description 08/21/1998 Outpatient Historical [facility] Anatoly Jaeger MD NO ADDRESS ON FILE Social History Tobacco Use Types Packs/Day Years Used Date Smoking Tobacco: Never Assessed Comments Unknown Sex and Gender Information Value Date Recorded Sex Assigned at Not on file Legal Sex Female 4:22 AM MARKETING STRATEGY MANAGER Gender Identity Not on file Sexual Orientation Not on file documented as of this encounter Plan of Treatment Not on file documented as of this encounter Visit Diagnoses Not on filedocumented in this encounter
--- OUTSIDE RECORDS SUMMARY | 2024-06-28 13:27 | XMS_ITS | Encounter Summary ---
Author Organization [facility] Address [address] [place] [address] Care Team Providers Care Typesetting Machine Tender Name Role Phone Unavailable Primary Care Provider Unavailabl e Encounter Details Date Type Department Care Team (Late st Contact Info) Description 05/26/2002 Outpatient Historical [facility] [address] [facility] [address] [place] [address] [place] [id number] [place] [address] Social History Tobacco Use Types Packs/Day Years Used Date Smoking Tobacco: Never Assessed Comments Unknown Sex and Gender Information Value Date Recorded Sex Assigned at Not on file Legal Sex Female 4:22 AM GAS WELDER APPRENTICE Gender Identity Not on file Sexual Orientation Not on file documented as of this encounter Plan of Treatment Not on file documented as of this encounter Visit Diagnoses Not on filedocumented in this encounter
--- OUTSIDE RECORDS SUMMARY | 2024-06-28 13:27 | XMS_ITS | Encounter Summary ---
Author Organization [facility] Address [address] [place] [address] Care Team Providers Care Riveting Machine Operator Tape Control Name Role Phone Unavailable Primary Care Provider [...] on file Legal Sex Female 4:22 AM INVENTORY CONTROL SPECIALIST Gender Identity Not on file Sexual Orientation Not on file documented as of this encounter Plan of Treatment Not on file documented as of this encounter Visit Diagnoses Not on filedocumented in this encounter
[2024-06-28 14:25] VITALS: BP 149/83; PULSE 57; RESP 16; O2SAT 100
== END 2024-06-28 14:25 | disposition home or self-care (01) ==
PROVIDERS: Student in an Organized Health Care Education/Training Program; Emergency Provider Emergency Medicine
DX: K52.9 Noninfective gastroenteritis and colitis, unspecified (principal); Z20.822 Contact with and (suspected) exposure to COVID-19; I10 Essential (primary) hypertension; E66.9 Obesity, unspecified; Z68.35 Body mass index [BMI] 35.0-35.9, adult; Z79.899 Other long term (current) drug therapy
CPT/HCPCS: 36415; 80053; 81001; 83690; 85025; 87637; 96361; 96374; 96375; 99284; J1885; J2405; J7030